=== PATIENT | female | born 1970 | race Caucasian/White ===

== ENCOUNTER 2018-06-26 12:46 | Emergency (ER) | payer SELFPAY ==
[~2018-06-26] VITALS: Ht 167.6 cm; Wt 58.5 kg
[~2018-06-26 12:46] MED LIST: HYDR-971 PO; LEVO500T8 PO; ONDA4TAB7 PO
[2018-06-26 12:55] VITALS: BP 132/80
--- NOTE | 2018-06-26 14:04 | RAD ---
Left shoulder 3 views. HISTORY: Left shoulder pain, hurts to move 3 views were taken of the left shoulder. There is not evidence of an acute fracture or osseous abnormality. IMPRESSION: 1. Negative left shoulder. Electronically signed by: Georges Britt MD (06/26/2018 2:00 PM) [facility]
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
[2018-06-26] MEDS ORDERED: IBUPROFEN 400 MG TABLET. PO ONE ×2 (14:23→15:00)
== END 2018-06-26 14:30 | disposition home or self-care (01) ==
LOC: ER 12:46
DX: M25.512 Pain in left shoulder (principal); F17.200 Nicotine dependence, unspecified, uncomplicated; Z98.890 Other specified postprocedural states; Z98.51 Tubal ligation status
CPT/HCPCS: 73030; 99284

== ENCOUNTER → 2019-10-17 | Outpatient (CLI) | payer OTHER ==
[~2019-10-17] MED LIST changes: +HYDR-3164 PO; -HYDR-971 PO
--- NOTE | 2019-10-17 17:37 | RAD ---
Pelvic ultrasound HISTORY: Abnormal vaginal bleeding. Transabdominal scan: Limited visualization of uterus and adnexa. Endovaginal scan: Uterus measures 9.8 x 5.3 x 6.3 cm. Endometrial stripe is somewhat heterogeneous and thickened, measuring about 28 mm thickness. There is a small lesion at the left uterine fundus measuring 1 cm, most likely a uterine fibroid. Small nabothian cysts. Right ovary measures 3.1 x 1.7 x 3.0 cm. Intact blood supply to the right ovary. 16 x 10 x 15 mm complex cystic appearing lesion of the right ovary with some peripheral vascularity, but no internal vascularity. Left ovary measures 2.4 x 2.4 x 1.5 cm. Intact blood supply to the left ovary without focal left ovarian lesion. No free fluid is seen. IMPRESSION: 1. Thick and heterogeneous uterine endometrium. This may be due to endometrial hemorrhage, but an endometrial mass or endometritis could result in a similar appearance. 2. Right ovarian lesion has the appearance of a complex or hemorrhagic cyst. 3. Small lesion at the left uterine fundus, most likely a fibroid. Electronically signed by: Sharif Jamil MD (10/17/2019 5:34 PM) [facility]
== END | disposition home or self-care (01) ==
LOC: US 14:08
DX: N83.8 Other noninflammatory disorders of ovary, fallopian tube and broad ligament (principal); N85.8 Other specified noninflammatory disorders of uterus
CPT/HCPCS: 76830; 76856

== ENCOUNTER → 2019-10-25 | Outpatient (CLI) | payer OTHER ==
[~2019-10-25] MED LIST changes: +GADOTERATE 7.5 MMOL/15ML VIAL. IVP ONE
--- NOTE | 2019-10-25 16:42 | RAD ---
MRI Brain with and without contrast History: Prolactinemia Technique: Multiplanar, multi sequential pre and postcontrast MR imaging was performed of the brain. Comparison: None Findings: There is no evidence of recent infarct or cytotoxic edema. The ventricles, sulci, and cisterns are within normal limits in size and configuration. There is no significant midline shift, intraaxial mass effect, or focal abnormal extra-axial fluid collection. There is no significant signal abnormality of the brain parenchyma. There is no nodular parenchymal or leptomeningeal enhancement. There is preservation of the major intracranial flow-voids at the skull base. The cerebellar tonsils are normal in location. There is no significant abnormality of the pineal gland. There is patchy very minimal ethmoid air cell and left maxillary sinus mucosal thickening. There is mild patchy fluid and thickening of the mastoid air cells bilaterally.There is preserved marrow signal of the clivus. Dedicated imaging of the pituitary gland was not performed. Pituitary gland is not significantly enlarged. Infundibulum is in the midline. Pituitary gland enhances fairly homogeneously on the large field of view images. Impression: 1. Dedicated pituitary imaging was not performed, pituitary gland not significantly enlarged. Electronically signed by: José Miguel Campbell MD (10/25/2019 4:39 PM) [id number]
== END | disposition home or self-care (01) ==
LOC: MRI 15:08
PROVIDERS: ATTEND Obstetrics & Gynecology
DX: E22.1 Hyperprolactinemia (principal); J34.89 Other specified disorders of nose and nasal sinuses
CPT/HCPCS: 70553; A9575

== ENCOUNTER 2020-02-15 10:56 | Emergency (ER) | payer OTHER ==
[~2020-02-15] VITALS: Ht 167.6 cm; Wt 63.6 kg
[~2020-02-15 10:56] MED LIST changes: -GADOTERATE 7.5 MMOL/15ML VIAL. IVP ONE
[2020-02-15] MEDS ORDERED: IV NORMAL SALINE 1000ML BAG 1,000 ML IV ONE (11:08)
--- NOTE | 2020-02-15 11:13 | PHYS DOC ---
Past Medical History Past Medical History: No Pertinent History, UTI Past Surgical History: , Tubal ligation Additional Past Surgical Histo: MESH PLACED DUE TO HERNIA REPAIR, Smoking Status: Current Every Day Smoker Alcohol Use: Occasionally Drug Use: None General Pediatric Assessment Chief Complaint Chief Complaint: ABDOMINAL PAIN History of Present Illness History of Present Illness 49-year-old female presented emergency department today with right-sided pain in her abdomen. She describes it as a sharp shooting pain that is nonradiating. It was more in her right upper abdomen last night and now is more in her right lower abdomen. The pain is moderate. It comes and goes. Is worse when she moves and when she lays on her right side. She denies vomiting or diarrhea. She denies changes in vaginal discharge. Review of systems negative for chest pain shortness of breath vomiting fevers chills. All other review of system. ED course: 49-year-old female presented emergency department today with right- sided abdominal pain. On arrival she is mildly tachycardic with mild hypertension. Otherwise she is well-appearing and nontoxic. Blood work shows minimally elevated nonspecific white blood cell count of 12.1. Chemistry panel unremarkable. Urine analysis negative for infection. CT the abdomen pelvis shows no evidence of acute appendicitis. Ultrasound of the pelvis shows heterogenous lesion likely related to the patient's 2 prior C-sections. On reexamination the patient's abdomen continues to be soft and nontender. We will discharge the patient today to follow-up with her PCP tomorrow or to return to an emergency department or urgent care for repeat examination. The patient has been examined and was not found to have an emergency medical condition. The patient was then discharged home in stable condition to follow up with their primary care physician over the next 1-2 days. They were to return if their sy mptoms worsened or if they were concerned for any reason. They were also instructed to return to the emergency department if they were unable to get the recommended and appropriate follow-up. [id number] discharge instructions and return precautions were given. Patient's questions were answered to their satisfaction. Patient is comfortable with plan. PPE Statement: During the patient's care I used an level 3 mask, gloves, and face sheild. Allergies Allergies Allergies Coded Allergies Type Severity Reaction Last Updated Verified No Known Allergies Allergy Unknown 02/18/16 Yes Physical Exam Physical Exam Constitutional: Well developed, well nourished, no acute distress, non-toxic appearance, positive interaction, playful. [] HENT: Normocephalic, atraumatic, bilateral external ears normal, oropharynx moist, no oral exudates, nose normal. [] Eyes: PERRLA, conjunctiva normal, no discharge. [] Neck: Normal range of motion, no tenderness, supple, no stridor. [] Cardiovascular: Normal heart rate, normal rhythm, no murmurs, no rubs, no gallops. [] Thorax and Lungs: Normal breath sounds, no respiratory distress, no wheezing, no chest tenderness, no retractions, no accessory muscle use. [] Abdomen: Bowel sounds normal, soft, no tenderness, no masses [] Skin: Warm, dry, no erythema, no rash. [] Back: No tenderness, no CVA tenderness. [] Extremities: Intact distal pulses, no tenderness, no cyanosis, ROM intact, no edema, no deformities. [] Neurologic: Alert and interactive, normal motor function, normal sensory function, no focal deficits noted. [] Radiology/Procedures Radiology/Procedures [] Course & Med Decision Making Course & Med Decision Making Pertinent Labs and Imaging studies reviewed. (See chart for details) [] Dragon Disclaimer Dragon Disclaimer This electronic medical record was generated, in whole or in part, using a voice recognition dictation system. Departure Departure Impression: Primary Impression: Abdominal pain Disposition: 01 HOME, SELF-CARE Condition: STABLE Referrals: NO PCP (PCP) Patient Instructions: Abdominal Pain Additional Instructions: All other ROS is negative unless otherwise noted. HUY SERRANO MD Feb 15, 2020 11:13
[2020-02-15] MEDS ORDERED: ONDANSETRON PF 4 MG/2 ML VIAL. IV ONE (11:15)
[2020-02-15] MEDS ORDERED: HYDROmorphone 2 MG/ML VIAL IM ONE (11:15)
[2020-02-15 11:17] LABS: BILIRUBIN,URINE NEGATIVE (NEG); CLARITY,URINE CLEAR; COLOR,URINE YELLOW; NITRITE,URINE NEGATIVE (NEG); PROTEIN,URINE NEGATIVE (NEG-TRACE); UROBILINOGEN,URINE 0.2 mg/dL (0.2 mg/dL)
[2020-02-15 11:21] LABS: SQUAMOUS EPITHELIAL CELL,UR MOD /LPF
[2020-02-15 11:22] LABS: BACTERIA,URINE 0 /HPF (0-FEW); RBC,URINE OCC /HPF (0-2)
[2020-02-15] MEDS ORDERED: HYDROmorphone 2 MG/ML VIAL IV ONE (11:30)
[2020-02-15 11:44] LABS: BASO # 0.1 x10^3/uL (0.0-0.2); BASO % 1 % (0-3); EOS # 0.3 x10^3/uL (0.0-0.7); EOS % 2 % (0-3); HEMATOCRIT 36.9 % (36.0-47.0); HEMOGLOBIN 12.3 g/dL (12.0-15.5); LYMPH # 1.4 x10^3/uL (1.0-4.8); LYMPH % 12 % (24-48); MEAN CORPUSCULAR HEMOGLOBIN 30 pg (25-35); MEAN CORPUSCULAR HGB CONC 33 g/dL (31-37); MEAN CORPUSCULAR VOLUME 91 fL (79-100); MONO # 1.1 x10^3/uL (0.0-1.1); MONO % 9 % (0-9); NEUT # 9.3 x10^3/uL (1.8-7.7); NEUT % 76 % (31-73); PLATELET COUNT 262 x10^3/uL (140-400); RED BLOOD COUNT 4.07 x10^6/uL (3.50-5.40); WHITE BLOOD COUNT 12.1 x10^3/uL (4.0-11.0)
[2020-02-15 11:51] LABS: CALCIUM 8.3 mg/dL (8.5-10.1); CREATININE 0.9 mg/dL (0.6-1.0); GFR 67.1; POTASSIUM 3.9 mmol/L (3.5-5.1)
[2020-02-15 11:59] LABS: ALBUMIN 3.4 g/dL (3.4-5.0); TOTAL BILIRUBIN 0.4 mg/dL (0.2-1.0); TOTAL PROTEIN 6.7 g/dL (6.4-8.2)
[2020-02-15] MEDS ORDERED: CONTRAST GIVEN. MC PRN (12:00)
[2020-02-15] MEDS ORDERED: IOHEXOL 300 MG/ML 100ML VIAL. IV ONE (12:00)
--- NOTE | 2020-02-15 12:29 | RAD ---
PELVIS W/TV History: Reason: PELVIC PAIN / Spl. Instructions: / History: Comparison: CT February 15, 2020. Ultrasound October 17, 2019. Technique: Grayscale and color Doppler imaging of the pelvis was performed using transabdominal and transvaginal technique. Findings: The uterus measures 10.6 x 6.0 x 5.4 cm. Heterogeneous lesion within the inferior anterior aspect of the uterus measures 0.8 x 0.8 x 0.8 cm. Previously seen lesion within the uterine fundus is not well identified on the current examination. Nabothian cysts noted. The endometrial stripe measures 13 mm. Right ovary measures 2 x 2.5 x 1.5 cm. Right ovarian follicle measures 1.2 cm. Left ovary measures 3.8 x 2.2 x 2.2 cm. Normal Doppler flow to the ovaries. No adnexal masses are seen. Minimal pelvic free fluid, likely physiologic. IMPRESSION: 1. Heterogeneous lesion within the inferior anterior aspect of the uterus, may relate to fibroid or possible postoperative changes. Recommend correlation for prior section. 2. Dominant right ovarian follicle. Electronically signed by: Ortega Pearce DO (02/15/2020 12:27 PM) [id number]
--- NOTE | 2020-02-15 12:34 | RAD ---
CT abdomen and pelvis with contrast History: Right abdominal pain Technique: After the administration of intravenous contrast, CT imaging was performed of the abdomen and pelvis. No oral contrast was given as per request. Multiplanar images are reviewed. Exposure: One or more of the following individualized dose reduction techniques were utilized for this examination: 1. Automated exposure control 2. Adjustment of the mA and/or kV according to patient size 3. Use of iterative reconstruction technique. Comparison: February 20, 2016 Findings: There is mild linear atelectasis of the visualized lung bases bilaterally. There is no significant abnormality of the liver, spleen, pancreas, adrenal glands. Both kidneys enhance. There is very mild increased right renal pelviectasis. Tiny hypodense lesion of the superior right kidney about 0.3 cm is too small to accurately characterize. There is again approximate 6.3 cm superior left renal cyst. There is also again 2.1 cm hypodense lesion of the medial left kidney, density measurements greater than simple fluid 26 Hounsfield units although size is similar dating back to 2016 exam. Gallbladder is present without obvious intraluminal abnormality by CT. There is again 1.2 cm splenic artery aneurysm. Accurate evaluation of bowel is limited without oral contrast. Normal caliber appendix is visualized without adjacent inflammatory-type change. There is retained stool greater of the right colon. There is been previous ventral hernia repair. There is mild diverticulosis greatest of the sigmoid colon. There are again 2 adjacent hypodense foci of the left adnexa with the largest about 2.1 cm, density measurements somewhat greater than simple cysts at 228 Hounsfield units. Impression: 1. There is no CT evidence of acute appendicitis, no significant inflammatory type change identified. No urolithiasis or significant hydronephrosis is identified. 2. There is again large superior left renal cyst, smaller focus of the medial left kidney which has density measurements greater than a simple cyst although more likely a complex cyst, size similar to 2016 exam. 3. There are some hypodense foci of the left adnexa which may be somewhat complex cysts. 4. There is mild colonic diverticulosis. 5. There is again 1.2 cm splenic artery aneurysm. Electronically signed by: José Miguel Campbell MD (02/15/2020 12:31 PM) [id number]
[2020-02-15 13:08] VITALS: BP 114/62
== END 2020-02-15 13:11 | disposition home or self-care (01) ==
LOC: ER 10:56
DX: R10.11 Right upper quadrant pain (principal); F17.200 Nicotine dependence, unspecified, uncomplicated; Z98.890 Other specified postprocedural states; Z98.51 Tubal ligation status
CPT/HCPCS: 36415; 74177; 76830; 76856; 80053; 81001; 83690; 85025; 96374; 96375; 99285; J1170; J2405; J7030; Q9967

== ENCOUNTER 2020-12-14 10:17 | Inpatient (IN) | payer OTHER ==
[~2020-12-14] VITALS: Ht 167.6 cm; Wt 65.0 kg
--- NOTE | 2020-12-14 10:28 | PHYS DOC ---
Past Medical History Past Medical History: UTI (MILIND QUINONEZ ORDER PACKER) Past Surgical History: , Tubal ligation Additional Past Surgical Histo: MESH PLACED DUE TO HERNIA REPAIR (MILIND QUINONEZ ORDER PACKER) Smoking Status: Current Every Day Smoker Alcohol Use: Occasionally Drug Use: None (MILIND QUINONEZ APRN) General Adult EDM: Chief Complaint: PELVIC PAIN HPI: HPI: Patient is a 50 year old female who presents with 1 day of low mid abdominal pressure, urination frequency and nausea. Patient denies fever, burning with urination, constipation, diarrhea, vomiting, headache, dizziness, chest pain, shortness of breath, back pain, syncope. Patient states she does not have any abdominal pain is just pressure and discomfort of which she rates a 10 out of 10. She states she is very nauseated. She states she has had a urinary tract infection that caused her to be septic in the past. She states she has been having vaginal bleeding for the last 6 weeks and has been seen by a microbiological lab technician of which her next appointment is in 5 days on 19 December. She denies going through more than one pad an hour. She is not on any kind of control. P odilon has a history of , smoker, mesh placed for hernia repair and UTI. (MILIND QUINONEZ ORDER PACKER) Review of Systems: Review of Systems: Constitutional: Denies fever or chills. [] Eyes: Denies change in visual acuity. [] HENT: Denies nasal congestion or sore throat. [] Respiratory: Denies cough or shortness of breath. [] Cardiovascular: Denies chest pain or edema. [] GI: + Lower abdominal pain, +nausea, denies vomiting, bloody stools or diarrhea. [] : Denies dysuria. [] Musculoskeletal: Denies back pain or joint pain. [] Integument: Denies rash. [] Neurologic: Denies headache, focal weakness or sensory changes. [] Endocrine: Denies polyuria or polydipsia. [] Lymphatic: Denies swollen glands. [] Psychiatric: Denies depression or anxiety. [] (MILIND QUINONEZ ORDER PACKER) Heart Score: C/O Chest Pain: No Risk Factors: Risk Factors: DM, Current or recent (<one month) smoker, HTN, HLP, family history of CAD, obesity. Risk Scores: Score 0 - 3: 2.5% MACE over next 6 weeks - Discharge Home Score 4 - 6: 20.3% MACE over next 6 weeks - Admit for Clinical Observation Score 7 - 10: 72.7% MACE over next 6 weeks - Early Invasive Strategies (MILIND QUINONEZ APRN) Allergies: Allergies: Allergies Coded Allergies Type Severity Reaction Last Updated Verified No Known Allergies Allergy Unknown 02/18/16 Yes (MILIND QUINONEZ APRN) Physical Exam: PE: Constitutional: Well developed, well nourished, no acute distress, non-toxic appearance. [] HENT: Normocephalic, atraumatic, bilateral external ears normal, oropharynx moist, no oral exudates, nose normal. [] Eyes: PERRLA, EOMI, conjunctiva normal, no discharge. [] Neck: Normal range of motion, no tenderness, supple, no stridor. [] Cardiovascular:Heart rate regular rhythm, no murmur [] Lungs & Thorax: Bilateral breath sounds clear to auscultation [] Abdomen: Bowel sounds normal, soft, no tenderness, no masses, no pulsatile masses. [] Skin: Warm, dry, no erythema, no rash. [] Back: No tenderness, no CVA tenderness. [] Extremities: No tenderness, no cyanosis, no clubbing, ROM intact, no edema. [] Neurologic: Alert and oriented X 3, normal motor function, normal sensory function, no focal deficits noted. [] Psychologic: Affect normal, judgement normal, mood normal. Normal physical exam [] (MILIND QUINONEZ APRN) EKG: EK and read by Dr De La Paz as Sinus Rhythm and no STEMI (MILIND QUINONEZ APRN) Radiology/Procedures: Radiology/Procedures: [] Impression: [facility] [address] [place], [place] [id number] IMAGING REPORT Signed PATIENT: KATHLEEN ABREU ACCOUNT: [id number] : 1970 LOCATION: ER AGE: 50 SEX: F EXAM STATUS: REG ER ORD. PHYSICIAN: MILIND QUINONEZ APRN REASON: shortness of breath PROCEDURE: PORTABLE CHEST 1V EXAM: Chest, single view. HISTORY: Shortness of breath. COMPARISON: None. FINDINGS: A frontal view of the chest is obtained. There is no infiltrate, pleural effusion or pneumothorax. The heart is normal in size. IMPRESSION: No acute pulmonary finding. Electronically signed by: Ange Mfcarlane MD (12/14/2020 11:07 AM) [id number] DICTATED and SIGNED BY: ANGE MCFARLANE MD DATE: 12/14/20 [id number] [facility] [address] [place] [address] IMAGING REPORT Signed PATIENT: KATHLEEN ABREU ACCOUNT: [id number] : 1970 LOCATION: ER AGE: 50 SEX: F EXAM STATUS: REG ER ORD. PHYSICIAN: MILIND QUINONEZ APRN REASON: hypoxia, OMNI 350 INJ 90 MLS PROCEDURE: CT ANGIO CHEST W ABD PEL W/ PQRS Compliance Statement: One or more of the following individualized dose reduction techniques were utilized for this examination: 1. Automated exposure control 2. Adjustment of the mA and/or kV according to patient size 3. Use of iterative reconstruction technique CTA CHEST_ABDOMEN_AND PELVIS Clinical Indication: Reason: hypoxia, abdominal tenderness, nausea. Comparison: CT abdomen and pelvis with contrast February 15, 2020. Technique: Helical CT of the chest was performed after the administration of 90 cc of Omnipaque 350 intravenous contrast according to PE protocol. Axial and coronal reconstructions were obtained. 3-D MIP images were constructed to better evaluate the pulmonary arteries. Helical CT imaging continued in the abdomen or pelvis. Findings: Pulmonary arteries are adequately opacified. There is no evidence of pulmonary embolism. There is no thoracic aortic dissection. The great vessels are normal caliber. There is a 1.9 cm left thyroid nodule or cyst, incompletely imaged. There is no adenopathy in the chest. Cardiac size is normal, no pericardial effusion. The central airways are patent. There is interlobular septal thickening in the bilateral lungs. There are posterior lower lobe consolidations bilaterally. The liver, gallbladder, spleen, pancreas, adrenal glands, and abdominal aorta caliber are normal. Bilateral renal cysts are stable or smaller and do not require follow-up. There is no hydronephrosis. There is ventral hernia mesh. Redemonstrated splenic artery aneurysm. The stomach is decompressed. There is no small bowel obstruction. Air distends the rectum. There is moderate sigmoid colon diverticulosis. Moderate colon stool volume. The appendix is normal. No colon wall thickening is seen. No abdominal adenopathy or free fluid. Urinary bladder is normal. Uterus unremarkable. No pelvic free fluid. Grade one retrolisthesis of L5 on S1. IMPRESSION: 1. There is no pulmonary embolus. 2. Interlobular septal thickening suggests interstitial edema. 3. Moderate bilateral posterior lower lobe consolidations may be atelectasis or pneumonia. 4. Left thyroid nodule. Recommend outpatient thyroid ultrasound. 5. No acute abdominal or pelvic abnormality. 6. Moderate sigmoid colon diverticulosis. Electronically signed by: Mitul Crowell MD (12/14/2020 12:23 PM) [id number] DICTATED and SIGNED BY: MITUL CROWELL MD DATE: 12/14/20 [id number] (MILIND QUINONEZ APRN) Course & Med Decision Making: Course & Med Decision Making Pertinent Labs and Imaging studies reviewed. (See chart for details) COVID-19 CRITERIA: The patient was evaluated during the global COVID-19 pandemic, and that diagnosis was suspected/considered upon their initial presentation. Their evaluation, treatment and testing was consistent with current guidelines for patients who present with complaints or symptoms that may be related to COVID-19. See HPI. Alert and oriented x4. Ambulatory with a steady gait. Speaks in full clear sentences. Skin pink warm and dry. Abdomen is soft and nontender. No CVA tenderness. Lungs are clear to auscultation all lobes. Patient states intermittently she does feel short of breath. Her O2 saturation in the ED is 94% on room air. She denies fevers but states occasionally she has some chills. Patient positive for amphetamines and opiates in her urine. Blood cell 17.6. Urine looks contaminated. Lactic acid is normal. EKG is normal. Patient got up and walked to the restroom she stayed at 89% on room air. Patient is given azithromycin and Rocephin. She is given a liter of normal saline. CT chest abdomen pelvis shows :IMPRESSION: 1. There is no pulmonary embolus. 2. Interlobular septal thickening suggests interstitial edema. 3. Moderate bilateral posterior lower lobe consolidations may be atelectasis or pneumonia. 4. Left thyroid nodule. Recommend outpatient thyroid ultrasound. 5. No acute abdominal or pelvic abnormality. 6. Moderate sigmoid colon diverticulosis. [] (MILIND QUINONEZ APRN) Dragon Disclaimer: Dragon Disclaimer: This electronic medical record was generated, in whole or in part, using a voice recognition dictation system. (MILIND QUINONEZ APRN) COVID-19 Patient Risks: Age 65 or older: No Sign of co-morbidity: Yes Exp to person + for COVID: No Exp to PUI: No Travel from affected area: No Lower respiratory symptoms: Yes Fever: No Other: No (MILIND QUINONEZ APRN) PPE Use: Full PPE with N95 mask or PAPR: Yes (MILIND QUINONEZ APRN) Departure Departure Impression: Primary Impression: Pneumonia Qualified Codes: J18.9 - Pneumonia, unspecified organism Additional Impressions: Person under investigation for COVID-19 Amphetamine abuse UTI (urinary tract infection) Qualified Codes: N39.0 - Urinary tract infection, site not specified; R31.9 - Hematuria, unspecified Disposition: 09 ADMITTED INPATIENT Admitting Physician: PRETTY (MILIND QUINONEZ APRN) Condition: STABLE Referrals: NO PCP (PCP) Attending Signature Attending Signature I have participated in the care of this patient and I have reviewed and agree with all pertinent clinical information above including history, exam, and recommendations. (SHELBY DE LA PAZ MD) MILIND QUINONEZ APRN Dec 14, 2020 10:28 SHELBY DE LA PAZ MD Dec 16, 2020 06:42
[2020-12-14] MEDS ORDERED: ONDANSETRON PF 4 MG/2 ML VIAL. IVP ONE (10:30)
[2020-12-14] MEDS ORDERED: IV NORMAL SALINE 1000ML BAG 1,000 ML IV SCH (10:30)
[2020-12-14 10:41] LABS: BASO # 0.2 x10^3/uL (0.0-0.2); BASO % 1 % (0-3); EOS # 0.3 x10^3/uL (0.0-0.7); EOS % 2 % (0-3); HEMATOCRIT 33.5 % (36.0-47.0); HEMOGLOBIN 11.1 g/dL (12.0-15.5); LYMPH # 0.6 x10^3/uL (1.0-4.8); LYMPH % 3 % (24-48); MEAN CORPUSCULAR HEMOGLOBIN 30 pg (25-35); MEAN CORPUSCULAR HGB CONC 33 g/dL (31-37); MEAN CORPUSCULAR VOLUME 90 fL (79-100); MONO # 0.3 x10^3/uL (0.0-1.1); MONO % 2 % (0-9); NEUT # 16.2 x10^3/uL (1.8-7.7); NEUT % 92 % (31-73); PLATELET COUNT 212 x10^3/uL (140-400); RED BLOOD COUNT 3.73 x10^6/uL (3.50-5.40); RED CELL DISTRIBUTION WIDTH 13.8 % (11.5-14.5); WHITE BLOOD COUNT 17.6 x10^3/uL (4.0-11.0)
[2020-12-14 10:42] LABS: BILIRUBIN,URINE NEGATIVE (NEG); CLARITY,URINE CLEAR; NITRITE,URINE NEGATIVE (NEG); PROTEIN,URINE NEGATIVE (NEG-TRACE)
[2020-12-14 10:47] LABS: COLOR,URINE YELLOW
[2020-12-14 10:48] LABS: BACTERIA,URINE MANY /HPF (0-FEW); BARBITURATES NEG (NEG); BENZODIAZEPINES NEG (NEG); CANNABINOIDS NEG (NEG); COCAINE NEG (NEG); METHADONE NEG (NEG); OPIATES POS (NEG); PHENCYCLIDINE NEG (NEG); RBC,URINE >40 /HPF (0-2)
[2020-12-14 10:50] LABS: AMPHETAMINE/METHAMPHETAMINE POS (NEG)
[2020-12-14 10:52] LABS: CALCIUM 8.1 mg/dL (8.5-10.1); CREATININE 0.8 mg/dL (0.6-1.0); GFR 76.6; POTASSIUM 3.7 mmol/L (3.5-5.1)
[2020-12-14 10:59] LABS: ALBUMIN 3.5 g/dL (3.4-5.0); ALBUMIN/GLOBULIN RATIO 1.3 (1.0-1.7); TOTAL BILIRUBIN 0.6 mg/dL (0.2-1.0); TOTAL PROTEIN 6.3 g/dL (6.4-8.2)
[2020-12-14] MEDS ORDERED: KETOROLAC 30 MG/ML VIAL. IVP ONE (11:00)
--- NOTE | 2020-12-14 11:09 | RAD ---
EXAM: Chest, single view. HISTORY: Shortness of breath. COMPARISON: None. FINDINGS: A frontal view of the chest is obtained. There is no infiltrate, pleural effusion or pneumo thorax. The heart is normal in size. IMPRESSION: No acute pulmonary finding. Electronically signed by: Ange Braden MD (12/14/2020 11:07 AM) [id number]
[2020-12-14] MEDS ORDERED: cefTRIAXone IV Push 1 GM VIAL. IVP ONE (11:30)
--- NOTE | 2020-12-14 11:35 | EKG ---
[facility] [address] [place] [address] Test Date: 2020-12-14 Test Time: 10:42:37 Pat Name: KATHLEEN ABREU Department: Room: Gender: F Supervisor Doping: : 1970 Requested By: MILIND QUINONEZ Order Number: [id number] Reading MD: Measurements Intervals [place] Rate: 75 P: 54 [place]: 148 QRS: 56 QRSD: 80 T: 47 QT: 370 QTc: 416 Interpretive Statements SINUS RHYTHM NO SPECIFIC ECG ABNORMALITIES RI6.01 No previous ECG available for comparison
[2020-12-14] MEDS ORDERED: CONTRAST GIVEN. MC PRN (11:45)
[2020-12-14] MEDS ORDERED: IOHEXOL 350 MG/ML 100 ML VIAL. IV ONE (12:00)
--- NOTE | 2020-12-14 12:26 | RAD ---
PQRS Compliance Statement: One or more of the following individualized dose reduction techniques were utilized for this examinat ion: 1. Automated exposure control 2. Adjustment of the mA and/or kV according to patient size 3. Use of iterative reconstruction technique CTA CHEST_ABDOMEN_AND PELVIS Clinical Indication: Reason: hypoxia, abdominal tenderness, nausea. Comparison: CT abdomen and pelvis with contrast February 15, 2020. Technique: Helical CT of the chest was performed after the administration of 90 cc of Omnipaque 350 intravenous contrast according to PE protocol. Axial and coronal reconstructions were obtained. 3-D MIP images were constructed to better evaluate the pulmonary arteries. Helical CT imaging continued in the abdomen or pelvis. Findings: Pulmonary arteries are adequately opacified. There is no evidence of pulmonary embolism. There is no thoracic aortic dissection. The great vessels are normal caliber. There is a 1.9 cm left thyroid nodule or cyst, incompletely imaged. There is no adenopathy in the chest. Cardiac size is nor mal, no pericardial effusion. The central airways are patent. There is interlobular septal thickening in the bilateral lungs. There are posterior lower lobe consolidations bilaterally. The liver, gallbladder, spleen, pancreas, adrenal glands, and abdominal aorta caliber are normal. Nick ateral renal cysts are stable or smaller and do not require follow-up. There is no hydronephrosis. Th ere is ventral hernia mesh. Redemonstrated splenic artery aneurysm. The stomach is decompressed. There is no small bowel obstruction. Air distends the rectum. There is m oderate sigmoid colon diverticulosis. Moderate colon stool volume. The appendix is normal. No colon w all thickening is seen. No abdominal adenopathy or free fluid. Urinary bladder is normal. Uterus unremarkable. No pelvic free fluid. Grade one retrolisthesis of L5 on S1. IMPRESSION: 1. There is no pulmonary embolus. 2. Interlobular septal thickening suggests interstitial edema. 3. Moderate bilateral posterior lower lobe consolidations may be atelectasis or pneumonia. 4. Left thyroid nodule. Recommend outpatient thyroid ultrasound. 5. No acute abdominal or pelvic abnormality. 6. Moderate sigmoid colon diverticulosis. Electronically signed by: Mitul Crowell MD (12/14/2020 12:23 PM) [id number]
[2020-12-14] MEDS ORDERED: methylPREDNISolone SOD SUCC PF 125 MG/2 ML VIAL. IV ONE (13:00)
[2020-12-14] MEDS ORDERED: AZITHRMYCN 500MG IVPB FOR OMNI 250 ML IV ONE (13:00)
[2020-12-14 13:32] LABS: % BANDS 8 % (0-9); % EOS 2 % (0-5); % LYMPHS 3 % (24-48); % MONOS 1 % (0-10); % SEGS 86 % (35-66)
[2020-12-14 13:33] LABS: PLT ESTIMATE ADEQUATE (ADEQUATE)
[2020-12-14] MEDS ORDERED: ONDANSETRON PF 4 MG/2 ML VIAL. IV PRN (13:45)
[2020-12-14] MEDS ORDERED: ACETAMINOPHEN 325 MG TABLET. PO PRN (13:45)
[2020-12-14 15:15] VITALS: BP 109/72
[2020-12-14] MEDS ORDERED: HYDROcodone/APAP 5/325MG 1 TAB TABLET PO PRN (15:45)
--- NOTE | 2020-12-14 19:15 | NUR ---
Dr Navarro made aware of consult per this RN
[2020-12-14 19:48] VITALS: BP 117/67
[2020-12-14 23:43] VITALS: BP 101/58
--- NOTE | 2020-12-15 00:13 | HP ---
ADMIT DATE: 12/14/2020 CHIEF COMPLAINT: Pelvic pain, abdominal pain. REASON FOR CONSULTATION: Shortness of breath. HISTORY OF PRESENT ILLNESS: The patient is a pleasant 50-year-old female who presented with the above chief complaints. Basically, she has been having a lot of abdominal pain and pelvic pain for the past day. She has also been having some heavy bleeding for the past 6 weeks. She has been seen by a graining operator and is actually scheduled to re-see them in 5 days. She has associated nausea. Rates her symptoms at 10/10. While in the ER, we did some lab and x-rays. She has a white count of 17.6. A CT of the chest is showing interlobar septal thickening suggestive of interstitial edema, moderate bilateral posterior lower lobe consolidation, which may represent pneumonia. I discussed the case with the ER physician. We are going to admit the patient, start IV antibiotics and rule it out for COVID-19. PAST MEDICAL HISTORY: Chronic pain, UTI, , tubal ligation, hernia repair with mesh, tobacco abuse. ALLERGIES: None. FAMILY HISTORY: Diabetes. SOCIAL HISTORY: She smokes. No drinking or drugs. MEDICATIONS: Reviewed. Please refer to the MRAD. REVIEW OF SYSTEMS: GENERAL: No history of weight change, weakness or fevers. SKIN: No bruising, hair changes or rashes. EYES: No blurred, double or loss of vision. NOSE AND THROAT: No history of nosebleeds, hoarseness or sore throat. HEART: No history of palpitations, chest pain or shortness of breath on exertion. LUNGS: She complains of slight shortness of breath. GASTROINTESTINAL: She complains of nausea and abdominal pain. GENITOURINARY: No history of frequency, urgency, hesitancy or nocturia. NEUROLOGIC: Denies history of numbness, tingling, tremor or weakness. PSYCHIATRIC: No history of panic, anxiety or depression. ENDOCRINE: No history of heat or cold intolerance, polyuria or polydipsia. EXTREMITIES: Denies muscle weakness, joint pain, pain on walking or stiffness. . PHYSICAL EXAMINATION: VITALS: Within normal limits and are stable. GENERAL: No apparent distress. Alert and oriented. HEENT: Normal cephalic atraumatic, external auditory canals are patent. EYES: Extraocular muscles are intact, pupils are equally round and reactive to light and accommodation. MUSCULOSKELETAL: Well developed, well nourished, good range of motion. ENDOCRINE: No thyromegaly was palpated. LYMPHATICS: No cervical chain or axillary nodes were noted. HEMATOPOIETIC: No bruising. NECK: Supple, no JVD, no thyromegaly was noted. LUNGS: She has decreased breath sounds. HEART: RRR, S1, S2 present. Peripheral pulses intact, no obvious murmurs were noted. ABDOMEN: She has decreased bowel sound and tender diffusely. EXTREMITIES: Without any cyanosis, clubbing, or edema. Pedal pulses intact, Homans sign is negative. NEUROLOGIC: Normal speech, normal tone. A and O x 3, moves all extremities, no obvious focal deficits. PSYCHIATRIC: Normal affect, normal mood. Stable. SKIN: No ulcerations or rashes, good skin turgor, no jaundice. VASCULAR: Good capillary refill, neurovascular bundle appears to be intact. IMAGING: Chest x-ray was normal, but CT of the chest did show pneumonia and interlobar septal thickening suggestive of interstitial edema. LABORATORY DATA: White count 17.6. Electrolytes are normal. Drug screen was positive for amphetamines and opiates. Urinalysis showed small amount of leukocyte esterase and 5-10 white cells. COVID-19 testing was negative. ASSESSMENT AND PLAN: Pneumonia, dysfunctional uterine bleeding, leukocytosis, anemia with a hemoglobin of 11.1 and possible drug abuse. The patient will be admitted, we will start IV antibiotics. Consult Pulmonary, consult KNIFE SETTER and consult GI regarding her CT findings which are showing moderate sigmoid diverticulosis. IV fluids, home medications. DVT prophylaxis. Full code. I will order some p.r.n. Lortab, p.r.n. Zofran. She received methylprednisolone and azithromycin in the ER and ceftriaxone in the ER. We have already swabbed her for COVID-19, it is negative. RAJANI DR: Ronen TID: [id number]
[2020-12-15 03:40] VITALS: BP 104/56
[2020-12-15 07:00] VITALS: BP 105/60
--- NOTE | 2020-12-15 10:17 | CONS ---
DATE OF CONSULTATION: 12/15/2020 REASON FOR CONSULTATION: I was asked to see this 50-year-old lady for pneumonia, abnormal CT of the chest. HISTORY OF PRESENT ILLNESS: She has a history of [id number] smoking, continues to smoke about six cigarettes per day. She denies drug abuse, but when I told her urine drug screen has been positive for amphetamine and opioids, she admitted that she took Adderall, which she got from her friend and hydrocodone, which she got from her father. She denies shortness of breath, cough or sputum production, fever or chills. She started to have pain in her suprapubic area and burning when urinate and frequency. She has a history of sepsis due to UTI. She presented to the emergency room. She had severe pain. She also has had abnormal uterine bleeding. She was told she would need a hysterectomy. PAST MEDICAL HISTORY: UTI. PAST SURGICAL HISTORY: , tubal ligation, hernia repair. ALLERGIES: No known drug allergies. FAMILY HISTORY: Diabetes mellitus. SOCIAL HISTORY: History of [id number] smoking, continues to smoke 6 cigarettes per day. ALLERGIES: No known drug allergies. MEDICATIONS: Currently, she is on hydrocodone, lorazepam. She was given Rocephin and azithromycin in the emergency room. REVIEW OF SYSTEMS: As mentioned as above. Other systems are otherwise negative. PHYSICAL EXAMINATION: GENERAL: She appears older than her age. VITAL SIGNS: Her O2 saturation on room air is 95%, respiratory rate is 18, heart rate 82, blood pressure 105/60, temperature 98.3. HEENT: Normocephalic, atraumatic. Pupils equal, round, reactive to light. Throat is clear. Nose is clear. NECK: There is no JVD, lymphadenopathy or thyromegaly. CARDIOVASCULAR: Regular rate and rhythm. PMI is not displaced. CHEST INSPECTION: Normal. LUNGS: Clear to auscultation. ABDOMEN: Soft. Bowel sounds are good. There is no mass. EXTREMITIES: There is no edema. LYMPHATICS: There is no lymphadenopathy. NEUROLOGIC: Alert and oriented. LABORATORY DATA: I reviewed the following lab data: CT angiogram of the chest did not show pulmonary embolism, showed interlobular septal thickening suggestive of interstitial edema, lower lobe atelectasis, colon diverticulosis. WBC 17.6, hemoglobin 11.1, platelets are 212. Rapid COVID test is negative. Sodium 141, potassium 3.7, chloride 107, CO2 27, BUN 9, creatinine 0.8. Troponin less than 0.017. BNP 344. Urine drug screen was positive for amphetamine and opioids. IMPRESSION: 1. Abnormal CT of the chest. I suspect it is atelectasis. She does not have any symptoms of pneumonia. 2. Tobacco habituation. 3. Urinary tract infection. 4. Positive urine drug screen. 5. Abnormal uterine bleeding. PLAN AND RECOMMENDATIONS: 1. Titrate FiO2 to keep O2 saturation 92%. 2. Start incentive spirometer to use multiple times an hour. 3. Antibiotic for UTI per primary doctor. 4. I had a long discussion with her regarding smoking cessation. I have advised her to stop smoking forever. 5. I have advised her to stop taking other people's Adderall and opioids. 6. The findings and recommendations were discussed with the patient. She understood and agreed to proceed with the plan. I have answered all of her questions. Thank you very much for allowing me to participate in care of this very nice lady. TERRI DR: Reymundo TID: [id number]
[2020-12-15 11:00] VITALS: BP 107/51
[2020-12-15] MEDS ORDERED: AZITHROMYCIN 500 MG in IV NORMAL SALINE 250ML 250 ML IV SCH (12:00)
[2020-12-15] MEDS ORDERED: cefTRIAXone IV Push 1 GM VIAL. IVP SCH (12:00)
[2020-12-15] MEDS: IV NORMAL SALINE 1000ML BAG 1,000 ML IV SCH (12:30)
[2020-12-15] MEDS: HYDROcodone/APAP 10/325 1 TAB TABLET PO PRN ×2 (12:38→17:27)
--- NOTE | 2020-12-15 12:38 | PDOC2 ---
CONSULT Date of Consult Date of Consult DATE: 12/15/20 TIME: 12:34 History of Present Illness Reason for Visit: 50y admitted for pneumonia. The pt presented to the ER yesterday with midline pain in her lower abd. They pt had recently been hospitalized for the sepsis 2/2 an UTI, so she was concerned that this could be occurring again. Her daughter call the ambulance for transportation. In the ER a CT was performed revealing the followin. There is no pulmonary embolus. 2. Interlobular septal thickening suggests interstitial edema. 3. Moderate bilateral posterior lower lobe consolidations may be atelectasis or pneumonia. 4. Left thyroid nodule. Recommend outpatient thyroid ultrasound. 5. No acute abdominal or pelvic abnormality. 6. Moderate sigmoid colon diverticulosis. The pt was noted to have a WBC of 17.6. The pt was admitted for tx of the pneumonia. The pt also reported that She has had a constant bleeding for the last 6wks. She states that the bleeding started 10/30/20 and has continued since. The pt typically has monthly cycles, but they have always been heavy. Prior to the pandemic, she was seeking to get an endometrial ablation. She initially saw Dr. Watts and Dr. Marshall. In the course of her w/u they discovered that she had an elevated Prolactin. They w/u the elevated Prolactin with head MRIs, u/ss, etc per the pt and did not discover a cause. 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 It does not seem that these dxs were w/u though. It sounds like the tx of her bleeding was not being address quick enough so she eventually sought a new foot tender and found Dr. Winter. Her first visit with him was last wk. She is scheduled for a EMB 12/18/20 and after this results she will be scheduled for a hysterectomy. Her bleeding at this point is light. The pt was asked if she had ever been told about a nodule on her thyroid. 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 It is unclear what this means. PMH: Denies PSH: C/S x 2, BTL, Hernia repair with mesh x 2 Meds: None All: NKDA OBHx: 1st TSVD (pt was 17yo), 2nd TSVD, 3rd TSVD, 4th TC/S for abruption ( demise), 5th TC/S [place]: LMP 10/30/20 (prior period nml) no h/o hormonal contraception 15yo / regular / heavy SH: 1/2 PPD, no EtOH FH: CA, aneurysm, HTN Social History ALCOHOL: social Drugs: None Current Problem List Problem List Problems Medical Problems: (1) Amphetamine abuse Status: Acute (2) Person under investigation for COVID-19 Status: Acute (3) Pneumonia Status: Acute (4) UTI (urinary tract infection) Status: Acute Current Medications Current Medications Current Medications Sodium Chloride 1,000 ml @ 1,000 mls/hr Q1H IV Last administered on 12/14/20at 10:37; Start 12/14/20 at 10:30; Stop 12/14/20 at 11:29; Status DC Ondansetron HCl (Zofran) 4 mg 1X ONCE IVP Last administered on 12/14/20at 10:37; Start 12/14/20 at 10:30; Stop 12/14/20 at 10:31; Status DC Ketorolac Tromethamine (Toradol 30mg Vial) 30 mg 1X ONCE IVP Last administered on 12/14/20at 11:03; Start 12/14/20 at 11:00; Stop 12/14/20 at 11:01; Status DC Ceftriaxone Sodium (Rocephin) 1 gm 1X ONCE IVP Last administered on 12/14/20at 12:03; Start 12/14/20 at 11:30; Stop 12/14/20 at 11:31; Status DC Iohexol (Omnipaque 350 Mg/ml) 90 ml 1X ONCE IV Last administered on 12/14/20at 11:54; Start 12/14/20 at 12:00; Stop 12/14/20 at 12:01; Status DC Info (CONTRAST GIVEN -- Rx MONITORING) 1 each PRN DAILY PRN MC SEE COMMENTS; Start 12/14/20 at 11:45; Stop 12/16/20 at 11:44 Azithromycin 250 ml @ 250 mls/hr 1X ONCE IV Last administered on 12/14/20at 13:18; Start 12/14/20 at 13:00; Stop 12/14/20 at 13:59; Status DC Methylprednisolone Sodium Succinate (SOLU-Medrol 125MG VIAL) 65 mg 1X ONCE IV Last administered on 12/14/20at 13:18; Start 12/14/20 at 13:00; Stop 12/14/20 at 13:01; Status DC Ondansetron HCl (Zofran) 4 mg PRN Q8HRS PRN IV NAUSEA/VOMITING Last administered on 12/14/20at 14:11; Start 12/14/20 at 13:45; Stop 12/15/20 at 13:44 Acetaminophen (Tylenol) 650 mg PRN Q4HRS PRN PO FEVER > 100.3'F; Start 12/14/20 at 13:45; Stop 12/15/20 at 13:44 Acetaminophen/ Hydrocodone Bitart (Lortab 5/325) 1 tab PRN Q4HRS PRN PO PAIN Last administered on 12/14/20at 15:48; Start 12/14/20 at 15:45; Stop 12/14/20 at 17:44; Status DC Lorazepam (Ativan Inj) 2 mg PRN Q4HRS PRN IVP ANXIETY / AGITATION; Start 12/14/20 at 17:45 Lorazepam (Ativan Inj) 1 mg PRN Q4HRS PRN IVP ANXIETY / AGITATION; Start 12/14/20 at 17:45 Acetaminophen/ Hydrocodone Bitart (Lortab 10/325) 1 tab PRN Q4HRS PRN PO MODERATE TO SEVERE PAIN; Start 12/14/20 at 17:45 Ceftriaxone Sodium (Rocephin) 1 gm Q24H IVP ; Start 12/15/20 at 12:00 Azithromycin 250 ml @ 250 mls/hr DAILY IV ; Start 12/16/20 at 09:00; Status Cancel Sodium Chloride 1,000 ml @ 75 mls/hr [id number] IV ; Start 12/15/20 at 11:45 Azithromycin 500 mg/Sodium Chloride 250 ml @ 250 mls/hr Q24H IV ; Start 12/15/20 at 12:00 Active Scripts Active Reported No Known Medications Prior To Admisstion (Info) Each 1 Each UNK Allergies Allergies: Coded Allergies: No Known Drug Allergies (Unverified , 12/14/20) Physical Exam Physical Exam GENERAL: No apparent distress. Alert and oriented. HEENT: Normal cephalic atraumatic, external auditory canals are patent. EYES: Extraocular muscles are intact, pupils are equally round and reactive to light and accommodation. MUSCULOSKELETAL: Well developed, well nourished, good range of motion. ENDOCRINE: No thyromegaly was palpated. LYMPHATICS: No cervical chain or axillary nodes were noted. HEMATOPOIETIC: No bruising. NECK: Supple, no JVD, no thyromegaly was noted. LUNGS: She has decreased breath sounds. HEART: RRR, S1, S2 present. Peripheral pulses intact, no obvious murmurs were noted. ABDOMEN: She has decreased bowel sound and tender diffusely. EXTREMITIES: Without any cyanosis, clubbing, or edema. Pedal pulses intact, Homans sign is negative. NEUROLOGIC: Normal speech, normal tone. A and O x 3, moves all extremities, no obvious focal deficits. PSYCHIATRIC: Normal affect, normal mood. Stable. SKIN: No ulcerations or rashes, good skin turgor, no jaundice. VASCULAR: Good capillary refill, neurovascular bundle appears to be intact. Vitals VITALS Vital Signs Date Time Temp Pulse Resp B/P (MAP) Pulse Ox O2 Delivery O2 Flow Rate FiO2 12/15/20 11:00 98.5 80 18 107/51 (69) 98 Room Air 98.5 Labs Labs Laboratory Tests Test 12/14/20 10:20 12/14/20 10:30 12/14/20 10:32 12/14/20 11:43 Urine Collection Type Unknown Urine Color Yellow Urine Clarity Clear Urine pH 7.0 (<5.0-8.0) Urine Specific [place] 1.020 (1.000-1.030) Urine Protein Negative mg/dL (NEG-TRACE) Urine Glucose (UA) Negative mg/dL (NEG) Urine Ketones (Stick) Trace mg/dL (NEG) Urine Blood Large (NEG) Urine Nitrite Negative (NEG) Urine Bilirubin Negative (NEG) Urine Urobilinogen Dipstick 1.0 mg/dL (0.2 mg/dL) Urine Leukocyte Esterase Small (NEG) Urine RBC >40 /HPF (0-2) Urine WBC 5-10 /HPF (0-4) Urine Squamous Epithelial Cells Many /LPF Urine Bacteria Many /HPF (0-FEW) Urine Mucus Marked /LPF Urine Opiates Screen Pos (NEG) Urine Methadone Screen Neg (NEG) Urine Barbiturates Neg (NEG) Urine Phencyclidine Screen Neg (NEG) Urine Amphetamine/Methamphetamine Pos (NEG) Urine Benzodiazepines Screen Neg (NEG) Urine Cocaine Screen Neg (NEG) Urine Cannabinoids Screen Neg (NEG) Urine Ethyl Alcohol Neg (NEG) White Blood Count 17.6 x10^3/uL (4.0-11.0) Red Blood Count 3.73 x10^6/uL (3.50-5.40) Hemoglobin 11.1 g/dL (12.0-15.5) Hematocrit 33.5 % (36.0-47.0) Mean Corpuscular Volume 90 fL (79-100) Mean Corpuscular Hemoglobin 30 pg (25-35) Mean Corpuscular Hemoglobin Concent 33 g/dL (31-37) Red Cell Distribution Width 13.8 % (11.5-14.5) Platelet Count 212 x10^3/uL (140-400) Neutrophils (%) (Auto) 92 % (31-73) Lymphocytes (%) (Auto) 3 % (24-48) Monocytes (%) (Auto) 2 % (0-9) Eosinophils (%) (Auto) 2 % (0-3) Basophils (%) (Auto) 1 % (0-3) Neutrophils # (Auto) 16.2 x10^3/uL (1.8-7.7) Lymphocytes # (Auto) 0.6 x10^3/uL (1.0-4.8) Monocytes # (Auto) 0.3 x10^3/uL (0.0-1.1) Eosinophils # (Auto) 0.3 x10^3/uL (0.0-0.7) Basophils # (Auto) 0.2 x10^3/uL (0.0-0.2) Segmented Neutrophils % 86 % (35-66) Band Neutrophils % 8 % (0-9) Lymphocytes % 3 % (24-48) Monocytes % 1 % (0-10) Eosinophils % 2 % (0-5) Platelet Estimate Adequate (ADEQUATE) D-Dimer (Karen) < 0.27 ug/mlFEU Sodium Level 141 mmol/L (136-145) Potassium Level 3.7 mmol/L (3.5-5.1) Chloride Level 107 mmol/L (98-107) Carbon Dioxide Level 27 mmol/L (21-32) Anion Gap 7 (6-14) Blood Urea Nitrogen 9 mg/dL (7-20) Creatinine 0.8 mg/dL (0.6-1.0) Estimated GFR (Cockcroft-Gault) 76.6 BUN/Creatinine Ratio 11 (6-20) Glucose Level 118 mg/dL (70-99) Lactic Acid Level 1.0 mmol/L (0.4-2.0) Calcium Level 8.1 mg/dL (8.5-10.1) Total Bilirubin 0.6 mg/dL (0.2-1.0) Aspartate Amino Transf (AST/SGOT) 11 U/L (15-37) Alanine Aminotransferase (ALT/SGPT) 11 U/L (14-59) Alkaline Phosphatase 42 U/L (46-116) Troponin I Quantitative < 0.017 ng/mL (0.000-0.055) NR-[id number]-M-Type Natriuretic Peptide 344 pg/mL (0-124) Total Protein 6.3 g/dL (6.4-8.2) Albumin 3.5 g/dL (3.4-5.0) Albumin/Globulin Ratio 1.3 (1.0-1.7) Lipase 69 U/L (73-393) Bedside Urine HCG, Qualitative Hcg negative (Negative) SARS-CoV-2 RNA (ANGIE) Negative (Negative) Assessment/Plan Assessment/Plan Assessment: 50y admitted for pneumonia Recommendations: 1.) Dysfunctional uterine bleeding Eval by multiple providers. Has a current tx plan with Dr. Winter. Current bleeding has slowed down. Per pt has an apt on 12/18 for EMB then to be scheduled for hysterectomy. No intervention required during this hospitalization 2.) Pneumonia on Azithro/ ceftriaxone, WBC 17.6, visualized on CT. 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
--- NOTE | 2020-12-15 13:11 | PDOC ---
Infectious Disease Note Vital Sign Vital Signs Vital Signs Date Time Temp Pulse Resp B/P (MAP) Pulse Ox O2 Delivery O2 Flow Rate FiO2 12/15/20 12:38 Room Air 12/15/20 11:00 98.5 80 18 107/51 (69) 98 98.5 Objective Assessment Leukocytosis Bilateral posterior lower lobe consolidations, likely atelectasis vs pneumonia Chronic lower abdominal pain STD exposure Substance abuse + Ur tox ampth/meth Dysfunctional uterine bleeding. followed by Dr. Winter w/ plans for biopsy and hysterectomy Sigmoid colon diverticulosis I Plan Plan of Care Rocephin, Azithromycin Screen HIV, CH/GC f/u cultures Monitor WBC trend and temp Pain management per primary Discussed with nursing and sister at bedside Thank you Labs in am. Concerned for STD. Has Endocrine appt 12/18 and scheduled for Hysterectomy Cont abx and f/u STDs - Syphillis also Attending Co-Sign Attending Co-Sign The patient was seen and interviewed as well as examined at the bedside. The chart was reviewed. The case was discussed. Agree with the plan of care. ADRYAN ARENAS APRN Dec 15, 2020 13:11 MELBA FREDERICK MD Dec 15, 2020 15:40
--- NOTE | 2020-12-15 13:53 | PDOC2 ---
CONSULT Date of Consult Date of Consult DATE: 12/15/20 TIME: 13:52 Reason for Consult Reason for Consult: Abd pain/dysfunctional uterine bleeding/constipation Social History ALCOHOL: social Drugs: None Current Problem List Problem List Problems Medical Problems: (1) Amphetamine abuse Status: Acute (2) Person under investigation for COVID-19 Status: Acute (3) Pneumonia Status: Acute (4) UTI (urinary tract infection) Status: Acute Current Medications Current Medications Current Medications Sodium Chloride 1,000 ml @ 1,000 mls/hr Q1H IV Last administered on 12/14/20at 10:37; Start 12/14/20 at 10:30; Stop 12/14/20 at 11:29; Status DC Ondansetron HCl (Zofran) 4 mg 1X ONCE IVP Last administered on 12/14/20at 10:37; Start 12/14/20 at 10:30; Stop 12/14/20 at 10:31; Status DC Ketorolac Tromethamine (Toradol 30mg Vial) 30 mg 1X ONCE IVP Last administered on 12/14/20at 11:03; Start 12/14/20 at 11:00; Stop 12/14/20 at 11:01; Status DC Ceftriaxone Sodium (Rocephin) 1 gm 1X ONCE IVP Last administered on 12/14/20at 12:03; Start 12/14/20 at 11:30; Stop 12/14/20 at 11:31; Status DC Iohexol (Omnipaque 350 Mg/ml) 90 ml 1X ONCE IV Last administered on 12/14/20at 11:54; Start 12/14/20 at 12:00; Stop 12/14/20 at 12:01; Status DC Info (CONTRAST GIVEN -- Rx MONITORING) 1 each PRN DAILY PRN MC SEE COMMENTS; Start 12/14/20 at 11:45; Stop 12/16/20 at 11:44 Azithromycin 250 ml @ 250 mls/hr 1X ONCE IV Last administered on 12/14/20at 13:18; Start 12/14/20 at 13:00; Stop 12/14/20 at 13:59; Status DC Methylprednisolone Sodium Succinate (SOLU-Medrol 125MG VIAL) 65 mg 1X ONCE IV Last administered on 12/14/20at 13:18; Start 12/14/20 at 13:00; Stop 12/14/20 at 13:01; Status DC Ondansetron HCl (Zofran) 4 mg PRN Q8HRS PRN IV NAUSEA/VOMITING Last administered on 12/14/20at 14:11; Start 12/14/20 at 13:45; Stop 12/15/20 at 13:44; Status DC Acetaminophen (Tylenol) 650 mg PRN Q4HRS PRN PO FEVER > 100.3'F; Start 12/14/20 at 13:45; Stop 12/15/20 at 13:44; Status DC Acetaminophen/ Hydrocodone Bitart (Lortab 5/325) 1 tab PRN Q4HRS PRN PO PAIN Last administered on 12/14/20at 15:48; Start 12/14/20 at 15:45; Stop 12/14/20 at 17:44; Status DC Lorazepam (Ativan Inj) 2 mg PRN Q4HRS PRN IVP ANXIETY / AGITATION; Start 12/14/20 at 17:45 Lorazepam (Ativan Inj) 1 mg PRN Q4HRS PRN IVP ANXIETY / AGITATION; Start 12/14/20 at 17:45 Acetaminophen/ Hydrocodone Bitart (Lortab 10/325) 1 tab PRN Q4HRS PRN PO MODERATE TO SEVERE PAIN Last administered on 12/15/20at 12:38; Start 12/14/20 at 17:45 Ceftriaxone Sodium (Rocephin) 1 gm Q24H IVP Last administered on 12/15/20at 12:29; Start 12/15/20 at 12:00 Azithromycin 250 ml @ 250 mls/hr DAILY IV ; Start 12/16/20 at 09:00; Status Cancel Sodium Chloride 1,000 ml @ 75 mls/hr [id number] IV Last administered on 12/15/20at 12:30; Start 12/15/20 at 11:45 Azithromycin 500 mg/Sodium Chloride 250 ml @ 250 mls/hr Q24H IV Last administered on 12/15/20at 12:30; Start 12/15/20 at 12:00 Active Scripts Active Reported No Known Medications Prior To Admisstion (Info) Each 1 Each UNK Allergies Allergies: Coded Allergies: No Known Drug Allergies (Unverified , 12/14/20) Vitals VITALS Vital Signs Date Time Temp Pulse Resp B/P (MAP) Pulse Ox O2 Delivery O2 Flow Rate FiO2 12/15/20 12:38 Room Air 12/15/20 11:00 98.5 80 18 107/51 (69) 98 98.5 Labs Labs Laboratory Tests Test 12/14/20 10:20 12/14/20 10:30 12/14/20 10:32 12/14/20 11:43 Urine Collection Type Unknown Urine Color Yellow Urine Clarity Clear Urine pH 7.0 (<5.0-8.0) Urine Specific [place] 1.020 (1.000-1.030) Urine Protein Negative mg/dL (NEG-TRACE) Urine Glucose (UA) Negative mg/dL (NEG) Urine Ketones (Stick) Trace mg/dL (NEG) Urine Blood Large (NEG) Urine Nitrite Negative (NEG) Urine Bilirubin Negative (NEG) Urine Urobilinogen Dipstick 1.0 mg/dL (0.2 mg/dL) Urine Leukocyte Esterase Small (NEG) Urine RBC >40 /HPF (0-2) Urine WBC 5-10 /HPF (0-4) Urine Squamous Epithelial Cells Many /LPF Urine Bacteria Many /HPF (0-FEW) Urine Mucus Marked /LPF Urine Opiates Screen Pos (NEG) Urine Methadone Screen Neg (NEG) Urine Barbiturates Neg (NEG) Urine Phencyclidine Screen Neg (NEG) Urine Amphetamine/Methamphetamine Pos (NEG) Urine Benzodiazepines Screen Neg (NEG) Urine Cocaine Screen Neg (NEG) Urine Cannabinoids Screen Neg (NEG) Urine Ethyl Alcohol Neg (NEG) White Blood Count 17.6 x10^3/uL (4.0-11.0) Red Blood Count 3.73 x10^6/uL (3.50-5.40) Hemoglobin 11.1 g/dL (12.0-15.5) Hematocrit 33.5 % (36.0-47.0) Mean Corpuscular Volume 90 fL (79-100) Mean Corpuscular Hemoglobin 30 pg (25-35) Mean Corpuscular Hemoglobin Concent 33 g/dL (31-37) Red Cell Distribution Width 13.8 % (11.5-14.5) Platelet Count 212 x10^3/uL (140-400) Neutrophils (%) (Auto) 92 % (31-73) Lymphocytes (%) (Auto) 3 % (24-48) Monocytes (%) (Auto) 2 % (0-9) Eosinophils (%) (Auto) 2 % (0-3) Basophils (%) (Auto) 1 % (0-3) Neutrophils # (Auto) 16.2 x10^3/uL (1.8-7.7) Lymphocytes # (Auto) 0.6 x10^3/uL (1.0-4.8) Monocytes # (Auto) 0.3 x10^3/uL (0.0-1.1) Eosinophils # (Auto) 0.3 x10^3/uL (0.0-0.7) Basophils # (Auto) 0.2 x10^3/uL (0.0-0.2) Segmented Neutrophils % 86 % (35-66) Band Neutrophils % 8 % (0-9) Lymphocytes % 3 % (24-48) Monocytes % 1 % (0-10) Eosinophils % 2 % (0-5) Platelet Estimate Adequate (ADEQUATE) D-Dimer (Karen) < 0.27 ug/mlFEU Sodium Level 141 mmol/L (136-145) Potassium Level 3.7 mmol/L (3.5-5.1) Chloride Level 107 mmol/L (98-107) Carbon Dioxide Level 27 mmol/L (21-32) Anion Gap 7 (6-14) Blood Urea Nitrogen 9 mg/dL (7-20) Creatinine 0.8 mg/dL (0.6-1.0) Estimated GFR (Cockcroft-Gault) 76.6 BUN/Creatinine Ratio 11 (6-20) Glucose Level 118 mg/dL (70-99) Lactic Acid Level 1.0 mmol/L (0.4-2.0) Calcium Level 8.1 mg/dL (8.5-10.1) Total Bilirubin 0.6 mg/dL (0.2-1.0) Aspartate Amino Transf (AST/SGOT) 11 U/L (15-37) Alanine Aminotransferase (ALT/SGPT) 11 U/L (14-59) Alkaline Phosphatase 42 U/L (46-116) Troponin I Quantitative < 0.017 ng/mL (0.000-0.055) PO-Xca-Y-Type Natriuretic Peptide 344 pg/mL (0-124) Total Protein 6.3 g/dL (6.4-8.2) Albumin 3.5 g/dL (3.4-5.0) Albumin/Globulin Ratio 1.3 (1.0-1.7) Lipase 69 U/L (73-393) Bedside Urine HCG, Qualitative Hcg negative (Negative) SARS-CoV-2 RNA (ANGIE) Negative (Negative) Assessment/Plan Assessment/Plan Constipation- most likely multifactorial in etiology with diverticulosis contributing. Increased miralax while an inpatient. O/P colonoscopy for CRC screening can be arranged later, Fullnote dictated RONALD CRANDALL MD Dec 15, 2020 13:53
--- NOTE | 2020-12-15 14:13 | PDOC ---
PROGRESS NOTES Date of Service: DATE: 12/15/20 TIME: 14:12 Chief Complaint Chief Complaint ASSESSMENT Pneumonia ? , COVID 19 NEG BUT AFEBRILE POSSIBLE UTI // Moderate bilateral posterior lower lobe consolidations may be atelectasis or pneumonia. LEUKOCYTOSIS dysfunctional uterine bleeding, leukocytosis, anemia with a hemoglobin of 11.1 possible drug abuse. POS MET ON UDS plan admitted, IV antibiotics. Consult Pulmonary, consult BLADE CHANGER consult GI regarding her CT findings which are showing moderate sigmoid diverticulosis. IV fluids, home medications. DVT prophylaxis. Full code. p.r.n. Lortab, p.r.n. Zofran. methylprednisolone iv azithromycin in the ER and ceftriaxone in the ER. Dysfunctional uterine bleeding Eval by multiple providers. FOLLOWS plan with Dr. Winter D/W RN 12-15 she took Adderall, which she got from her friend and hydrocodone, which she got from her father. History of Present Illness History of Present Illness ADMIT DATE: 12/14/2020 CHIEF COMPLAINT: Pelvic pain, abdominal pain. covid neg REASON FOR CONSULTATION: Shortness of breath. HISTORY OF PRESENT ILLNESS: pleasant 50-year-old female who presented with the above chief complaints. Basically, she has been having a lot of abdominal pain and pelvic pain for the past day. She has also been having some heavy bleeding for the past 6 weeks. She has been seen by a brownfield program coordinator and is actually scheduled to re-see them in 5 days. She has associated nausea. Rates her symptoms at 10/10. While in the ER, we did some lab and x-rays. She has a white count of 17.6. A CT of the chest is showing interlobar septal thickening suggestive of interstitial edema, moderate bilateral posterior lower lobe consolidation, which may represent pneumonia. admit the patient, start IV antibiotics and rule it out for COVID-19. PAST MEDICAL HISTORY: Chronic pain, UTI, , tubal ligation, hernia repair with mesh, tobacco abuse. ALLERGIES: None. FAMILY HISTORY: Diabetes. SOCIAL HISTORY: She smokes. No drinking or drugs. MEDICATIONS: Reviewed. Please refer to the MRAD. REVIEW OF SYSTEMS: GENERAL: No history of weight change, weakness or fevers. SKIN: No bruising, hair changes or rashes. EYES: No blurred, double or loss of vision. NOSE AND THROAT: No history of nosebleeds, hoarseness or sore throat. HEART: No history of palpitations, chest pain or shortness of breath on exertion. LUNGS: She complains of slight shortness of breath. GASTROINTESTINAL: She complains of nausea and abdominal pain. GENITOURINARY: No history of frequency, urgency, hesitancy or nocturia. NEUROLOGIC: Denies history of numbness, tingling, tremor or weakness. PSYCHIATRIC: No history of panic, anxiety or depression. ENDOCRINE: No history of heat or cold intolerance, polyuria or polydipsia. EXTREMITIES: Denies muscle weakness, joint pain, pain on walking or stiffness. Vitals Vitals Vital Signs Date Time Temp Pulse Resp B/P (MAP) Pulse Ox O2 Delivery O2 Flow Rate FiO2 12/15/20 12:38 Room Air 12/15/20 11:00 98.5 80 18 107/51 (69) 98 98.5 Physical Exam Physical Exam GENERAL: No apparent distress. Alert and oriented. HEENT: Normal cephalic atraumatic, external auditory canals are patent. EYES: Extraocular muscles are intact, pupils are equally round and reactive to light and accommodation. MUSCULOSKELETAL: Well developed, well nourished, good range of motion. ENDOCRINE: No thyromegaly was palpated. LYMPHATICS: No cervical chain or axillary nodes were noted. HEMATOPOIETIC: No bruising. NECK: Supple, no JVD, no thyromegaly was noted. LUNGS: She has decreased breath sounds. HEART: RRR, S1, S2 present. Peripheral pulses intact, no obvious murmurs were noted. ABDOMEN: She has decreased bowel sound and tender diffusely. EXTREMITIES: Without any cyanosis, clubbing, or edema. Pedal pulses intact, Homans sign is negative. NEUROLOGIC: Normal speech, normal tone. A and O x 3, moves all extremities, no obvious focal deficits. PSYCHIATRIC: Normal affect, normal mood. Stable. SKIN: No ulcerations or rashes, good skin turgor, no jaundice. VASCULAR: Good capillary refill, neurovascular bundle appears to be intact. Lungs: Clear Labs LABS PELVIS W/TV History: Reason: PELVIC PAIN / Spl. Instructions: / History: Comparison: CT February 15, 2020. Ultrasound October 17, 2019. Technique: Grayscale and color Doppler imaging of the pelvis was performed using transabdominal and transvaginal technique. Findings: The uterus measures 10.6 x 6.0 x 5.4 cm. Heterogeneous lesion within the inferior anterior aspect of the uterus measures 0.8 x 0.8 x 0.8 cm. Previously seen lesion within the uterine fundus is not well identified on the current examination. Nabothian cysts noted. The endometrial stripe measures 13 mm. Right ovary measures 2 x 2.5 x 1.5 cm. Right ovarian follicle measures 1.2 cm. Left ovary measures 3.8 x 2.2 x 2.2 cm. Normal Doppler flow to the ovaries. No adnexal masses are seen. Minimal pelvic free fluid, likely physiologic. IMPRESSION: 1. Heterogeneous lesion within the inferior anterior aspect of the uterus, may relate to fibroid or possible postoperative changes. Recommend correlation for prior section. 2. Dominant right ovarian follicle. Electronically signed by: Ortega Pearce DO (02/15/2020 12:27 PM) [id number] DICTATED and SIGNED BY: ORTEGA PEARCE DO DATE: 02/15/20 1227 EXAM: Chest, single view. HISTORY: Shortness of breath. COMPARISON: None. FINDINGS: A frontal view of the chest is obtained. There is no infiltrate, pleural effusion or pneumothorax. The heart is normal in size. IMPRESSION: No acute pulmonary finding. Electronically signed by: Ange Mcfarlane MD (12/14/2020 11:07 AM) [id number] DICTATED and SIGNED BY: ANGE MCFARLANE MD DATE: 12/14/20 [id number] PQRS Compliance Statement: One or more of the following individualized dose reduction techniques were utilized for this examination: 1. Automated exposure control 2. Adjustment of the mA and/or kV according to patient size 3. Use of iterative reconstruction technique CTA CHEST_ABDOMEN_AND PELVIS Clinical Indication: Reason: hypoxia, abdominal tenderness, nausea. Comparison: CT abdomen and pelvis with contrast February 15, 2020. Technique: Helical CT of the chest was performed after the administration of 90 cc of Omnipaque 350 intravenous contrast according to PE protocol. Axial and coronal reconstructions were obtained. 3-D MIP images were constructed to better evaluate the pulmonary arteries. Helical CT imaging continued in the abdomen or pelvis. Findings: Pulmonary arteries are adequately opacified. There is no evidence of pulmonary embolism. There is no thoracic aortic dissection. The great vessels are normal caliber. There is a 1.9 cm left thyroid nodule or cyst, incompletely imaged. There is no adenopathy in the chest. Cardiac size is normal, no pericardial effusion. The central airways are patent. There is interlobular septal thickening in the bilateral lungs. There are posterior lower lobe consolidations bilaterally. The liver, gallbladder, spleen, pancreas, adrenal glands, and abdominal aorta caliber are normal. Bilateral renal cysts are stable or smaller and do not require follow-up. There is no hydronephrosis. There is ventral hernia mesh. Redemonstrated splenic artery aneurysm. The stomach is decompressed. There is no small bowel obstruction. Air distends the rectum. There is moderate sigmoid colon diverticulosis. Moderate colon stool volume. The appendix is normal. No colon wall thickening is seen. No abdominal adenopathy or free fluid. Urinary bladder is normal. Uterus unremarkable. No pelvic free fluid. Grade one retrolisthesis of L5 on S1. IMPRESSION: 1. There is no pulmonary embolus. 2. Interlobular septal thickening suggests interstitial edema. 3. Moderate bilateral posterior lower lobe consolidations may be atelectasis or pneumonia. 4. Left thyroid nodule. Recommend outpatient thyroid ultrasound. 5. No acute abdominal or pelvic abnormality. 6. Moderate sigmoid colon diverticulosis. Electronically signed by: Mitul Crowell MD (12/14/2020 12:23 PM) [id number] DICTATED and SIGNED BY: MITUL CROWELL MD DATE: 12/14/20 [id number] Assessment and Plan Assessmemt and Plan Problems Medical Problems: (1) Amphetamine abuse Status: Acute (2) Person under investigation for COVID-19 Status: Acute (3) Pneumonia Status: Acute (4) UTI (urinary tract infection) Status: Acute Comment Review of Relevant I have reviewed the following items rosalind (where applicable) has been applied. Labs Laboratory Tests Test 12/14/20 10:20 12/14/20 10:30 12/14/20 10:32 12/14/20 11:43 Urine Collection Type Unknown Urine Color Yellow Urine Clarity Clear Urine pH 7.0 (<5.0-8.0) Urine Specific Prince 1.020 (1.000-1.030) Urine Protein Negative mg/dL (NEG-TRACE) Urine Glucose (UA) Negative mg/dL (NEG) Urine Ketones (Stick) Trace mg/dL (NEG) Urine Blood Large (NEG) Urine Nitrite Negative (NEG) Urine Bilirubin Negative (NEG) Urine Urobilinogen Dipstick 1.0 mg/dL (0.2 mg/dL) Urine Leukocyte Esterase Small (NEG) Urine RBC >40 /HPF (0-2) Urine WBC 5-10 /HPF (0-4) Urine Squamous Epithelial Cells Many /LPF Urine Bacteria Many /HPF (0-FEW) Urine Mucus Marked /LPF Urine Opiates Screen Pos (NEG) Urine Methadone Screen Neg (NEG) Urine Barbiturates Neg (NEG) Urine Phencyclidine Screen Neg (NEG) Urine Amphetamine/Methamphetamine Pos (NEG) Urine Benzodiazepines Screen Neg (NEG) Urine Cocaine Screen Neg (NEG) Urine Cannabinoids Screen Neg (NEG) Urine Ethyl Alcohol Neg (NEG) White Blood Count 17.6 x10^3/uL (4.0-11.0) Red Blood Count 3.73 x10^6/uL (3.50-5.40) Hemoglobin 11.1 g/dL (12.0-15.5) Hematocrit 33.5 % (36.0-47.0) Mean Corpuscular Volume 90 fL (79-100) Mean Corpuscular Hemoglobin 30 pg (25-35) Mean Corpuscular Hemoglobin Concent 33 g/dL (31-37) Red Cell Distribution Width 13.8 % (11.5-14.5) Platelet Count 212 x10^3/uL (140-400) Neutrophils (%) (Auto) 92 % (31-73) Lymphocytes (%) (Auto) 3 % (24-48) Monocytes (%) (Auto) 2 % (0-9) Eosinophils (%) (Auto) 2 % (0-3) Basophils (%) (Auto) 1 % (0-3) Neutrophils # (Auto) 16.2 x10^3/uL (1.8-7.7) Lymphocytes # (Auto) 0.6 x10^3/uL (1.0-4.8) Monocytes # (Auto) 0.3 x10^3/uL (0.0-1.1) Eosinophils # (Auto) 0.3 x10^3/uL (0.0-0.7) Basophils # (Auto) 0.2 x10^3/uL (0.0-0.2) Segmented Neutrophils % 86 % (35-66) Band Neutrophils % 8 % (0-9) Lymphocytes % 3 % (24-48) Monocytes % 1 % (0-10) Eosinophils % 2 % (0-5) Platelet Estimate Adequate (ADEQUATE) D-Dimer (Karen) < 0.27 ug/mlFEU Sodium Level 141 mmol/L (136-145) Potassium Level 3.7 mmol/L (3.5-5.1) Chloride Level 107 mmol/L (98-107) Carbon Dioxide Level 27 mmol/L (21-32) Anion Gap 7 (6-14) Blood Urea Nitrogen 9 mg/dL (7-20) Creatinine 0.8 mg/dL (0.6-1.0) Estimated GFR (Cockcroft-Gault) 76.6 BUN/Creatinine Ratio 11 (6-20) Glucose Level 118 mg/dL (70-99) Lactic Acid Level 1.0 mmol/L (0.4-2.0) Calcium Level 8.1 mg/dL (8.5-10.1) Total Bilirubin 0.6 mg/dL (0.2-1.0) Aspartate Amino Transf (AST/SGOT) 11 U/L (15-37) Alanine Aminotransferase (ALT/SGPT) 11 U/L (14-59) Alkaline Phosphatase 42 U/L (46-116) Troponin I Quantitative < 0.017 ng/mL (0.000-0.055) GQ-Lrz-[id number]-Type Natriuretic Peptide 344 pg/mL (0-124) Total Protein 6.3 g/dL (6.4-8.2) Albumin 3.5 g/dL (3.4-5.0) Albumin/Globulin Ratio 1.3 (1.0-1.7) Lipase 69 U/L (73-393) Bedside Urine HCG, Qualitative Hcg negative (Negative) SARS-CoV-2 RNA (ANGIE) Negative (Negative) Microbiology 12/14/20 Blood Culture - Preliminary, Resulted NO GROWTH AFTER 1 DAY Medications Current Medications Sodium Chloride 1,000 ml @ 1,000 mls/hr Q1H IV Last administered on 12/14/20at 10:37; Start 12/14/20 at 10:30; Stop 12/14/20 at 11:29; Status DC Ondansetron HCl (Zofran) 4 mg 1X ONCE IVP Last administered on 12/14/20at 10:37; Start 12/14/20 at 10:30; Stop 12/14/20 at 10:31; Status DC Ketorolac Tromethamine (Toradol 30mg Vial) 30 mg 1X ONCE IVP Last administered on 12/14/20at 11:03; Start 12/14/20 at 11:00; Stop 12/14/20 at 11:01; Status DC Ceftriaxone Sodium (Rocephin) 1 gm 1X ONCE IVP Last administered on 12/14/20at 12:03; Start 12/14/20 at 11:30; Stop 12/14/20 at 11:31; Status DC Iohexol (Omnipaque 350 Mg/ml) 90 ml 1X ONCE IV Last administered on 12/14/20at 11:54; Start 12/14/20 at 12:00; Stop 12/14/20 at 12:01; Status DC Info (CONTRAST GIVEN -- Rx MONITORING) 1 each PRN DAILY PRN MC SEE COMMENTS; Start 12/14/20 at 11:45; Stop 12/16/20 at 11:44 Azithromycin 250 ml @ 250 mls/hr 1X ONCE IV Last administered on 12/14/20at 13:18; Start 12/14/20 at 13:00; Stop 12/14/20 at 13:59; Status DC Methylprednisolone Sodium Succinate (SOLU-Medrol 125MG VIAL) 65 mg 1X ONCE IV Last administered on 12/14/20at 13:18; Start 12/14/20 at 13:00; Stop 12/14/20 at 13:01; Status DC Ondansetron HCl (Zofran) 4 mg PRN Q8HRS PRN IV NAUSEA/VOMITING Last administered on 12/14/20at 14:11; Start 12/14/20 at 13:45; Stop 12/15/20 at 13:44; Status DC Acetaminophen (Tylenol) 650 mg PRN Q4HRS PRN PO FEVER > 100.3'F; Start 12/14/20 at 13:45; Stop 12/15/20 at 13:44; Status DC Acetaminophen/ Hydrocodone Bitart (Lortab 5/325) 1 tab PRN Q4HRS PRN PO PAIN Last administered on 12/14/20at 15:48; Start 12/14/20 at 15:45; Stop 12/14/20 at 17:44; Status DC Lorazepam (Ativan Inj) 2 mg PRN Q4HRS PRN IVP ANXIETY / AGITATION; Start 12/14/20 at 17:45 Lorazepam (Ativan Inj) 1 mg PRN Q4HRS PRN IVP ANXIETY / AGITATION; Start 12/14/20 at 17:45 Acetaminophen/ Hydrocodone Bitart (Lortab 10/325) 1 tab PRN Q4HRS PRN PO MODERATE TO SEVERE PAIN Last administered on 12/15/20at 12:38; Start 12/14/20 at 17:45 Ceftriaxone Sodium (Rocephin) 1 gm Q24H IVP Last administered on 12/15/20at 12:29; Start 12/15/20 at 12:00 Azithromycin 250 ml @ 250 mls/hr DAILY IV ; Start 12/16/20 at 09:00; Status Cancel Sodium Chloride 1,000 ml @ 75 mls/hr [id number] IV Last administered on 12/15/20at 12:30; Start 12/15/20 at 11:45 Azithromycin 500 mg/Sodium Chloride 250 ml @ 250 mls/hr Q24H IV Last administered on 12/15/20at 12:30; Start 12/15/20 at 12:00 Active Scripts Active Reported No Known Medications Prior To Admisstion (Info) Each 1 Each UNK Vitals/I & O Vital Sign - Last 24 Hours 12/14/20 12/14/20 12/14/20 12/14/20 14:35 15:15 15:15 15:48 Temp 98.4 98.4 Pulse 100 101 Resp 16 18 B/P (MAP) 117/70 (86) 109/72 (84) Pulse Ox 93 94 O2 Delivery Room Air Room Air Room Air Room Air 12/14/20 12/14/20 12/15/20 12/15/20 19:48 23:43 03:40 07:00 Temp 98.6 98.6 98.4 98.3 98.6 98.6 98.4 98.3 Pulse 87 89 81 82 Resp 18 16 18 18 B/P (MAP) 117/67 (84) 101/58 (72) 104/56 (72) 105/60 (75) Pulse Ox 96 94 96 95 O2 Delivery Room Air Room Air Room Air 12/15/20 12/15/20 12/15/20 08:00 11:00 12:38 Temp 98.5 98.5 Pulse 80 Resp 18 B/P (MAP) 107/51 (69) Pulse Ox 98 O2 Delivery Room Air Room Air Room Air Intake and Output 12/14/20 12/14/20 12/15/20 14:59 22:59 06:59 Intake Total 1250 ml 300 ml Balance 1250 ml 300 ml Justicifation of Admission Dx: Justifications for Admission: Justification of Admission Dx: Yes Sepsis: Altered Mental Status SHANNON RUBIN MD Dec 15, 2020 14:13
[2020-12-15 15:00] VITALS: BP 103/51
--- NOTE | 2020-12-15 18:26 | CONS ---
DATE OF CONSULTATION: 12/15/2020 Marla Llanos, nurse practiotioner, dictating for Dr. Gagan Flores, Infectious Disease. REFERRING PHYSICIAN: Dr. Watson. REASON FOR CONSULTATION: Possible pneumonia and leukocytosis. HISTORY OF PRESENT ILLNESS: This patient is a 50-year-old female who presented with complaints of acute onset shortness of air. She tested negative for COVID. CT chest showed interlobular septal thickening and moderate bilateral posterior lower lobe consolidations may be atelectasis or pneumonia, no pulmonary embolus. She was admitted and started on Rocephin and azithromycin. Today, the patient is feeling better. She is not requiring any supplemental oxygen. She denies cough or chest discomfort. However, she is concerned that she may have a urinary tract infection or STD as her partner has had Trichomonas. She denies dysuria, fever or chills. HIV status unknown. She has chronic lower abdominal pain and heavy irregular menstrual cycles. She is followed by Dr. Winter with plans for endometrial biopsy and hysterectomy for dysfunctional uterine bleeding. She is also scheduled to see Endocrinology on 12/18. She is usually very active. However, lately she has been fatigued and sleeping quite a bit. PAST MEDICAL HISTORY: 1. Dysfunctional uterine bleeding. 2. Anemia. 3. Chronic pain. PAST SURGICAL HISTORY: section x 2, tubal ligation, hernia repair with mesh, tonsillectomy, adenoidectomy. SOCIAL HISTORY: The patient is a smoker. FAMILY HISTORY: Diabetes. ALLERGIES: No known drug allergies. MEDICATIONS: Ceftriaxone, azithromycin, lorazepam, Lortab, ondansetron, Tylenol. REVIEW OF SYSTEMS: Per HPI, otherwise all other review of systems are negative. PHYSICAL EXAMINATION: VITAL SIGNS: Temperature 98.5, blood pressure 107/51, heart rate 80, respiratory rate 18, pulse oximetry 98% on room air. GENERAL: The patient is propped up in bed, alert, appears tired. HEENT: Pupils equally round, reactive. Normal conjunctivae. Oropharynx pink and moist. No lesions seen. NECK: Supple. LUNGS: Clear to auscultation. No accessory muscle use. HEART: Normal S1 and S2 regular. ABDOMEN: Soft. Tender lower mid abdominal area. Bowel sounds present. No rebound. EXTREMITIES: No gross edema or cyanosis. SKIN: Warm to touch. No signs of rash. NEUROLOGIC: Alert and answering questions appropriately. LABORATORY DATA: On admission; WBC 17.6, hemoglobin 11.1, platelets 212,000. Electrolytes unremarkable. Creatinine 0.8, BUN 9, glucose 118. Lactic acid 1.0. Total bilirubin 0.6, AST 11, ALT 11. Troponin less than 0.017. BNP 344, albumin 3.5, lipase 69. Urinalysis positive for few wbc's, leukocyte esterase, blood and squamous epithelial cells. Urine test negative. COVID negative. Urine toxicology positive for opiates, amphetamine/methamphetamine. Blood cultures negative to date. Chest x-ray showed no acute pulmonary finding. Chest, abdomen and pelvis showed no pulmonary embolus. Interlobular septal thickening suggest interstitial edema. Moderate bilateral posterior lower lobe consolidations may be atelectasis or pneumonia. Left thyroid nodule. No acute abdominal or pelvic abnormality. Moderate sigmoid colon diverticulosis. IMPRESSION: 1. Leukocytosis. 2. Bilateral posterior lower lobe consolidation, likely atelectasis versus pneumonia. 3. Chronic lower abdominal pain. 4. STD exposure. 5. Substance abuse with positive urine toxicology for amphetamine/methamphetamine. 6. Dysfunctional uterine bleeding, followed by Dr. Winter with plans for biopsy and hysterectomy, also scheduled to see mathematics department chair on 12/18. 7. Sigmoid colon diverticulosis. 8. Left thyroid nodule. PLAN: 1. Continue ceftriaxone and azithromycin. 2. Screen for HIV chlamydia/gonorrhea and syphilis. 3. Follow up on culture results. 4. Monitor WBC trend and temperature. 5. Pain management per primary. 6. Discussed with nursing and the patient's sister at bedside. Thank you, Dr. Watson, for asking us to participate in this patient's care. Should you have further questions or concerns, please call. The patient is seen and examined and plan of care implemented by Dr. Gagan Flores. JONATHAN DR: Reanna TID: [phone]
[2020-12-15 19:00] VITALS: BP 103/53
[2020-12-15] MEDS ORDERED: POLYETHYLENE GLYCOL 3350 17 GM PACKET. PO PRN (21:45)
[2020-12-15] MEDS ORDERED: SENNOSIDES 8.6 MG TABLET PO PRN (21:45)
[2020-12-15 23:00] VITALS: BP 109/51
[2020-12-16 03:00] VITALS: BP 106/55
[2020-12-16 05:08] LABS: BASO % 0 % (0-3); EOS # 0.9 x10^3/uL (0.0-0.7); EOS % 9 % (0-3); HEMATOCRIT 28.8 % (36.0-47.0); HEMOGLOBIN 9.4 g/dL (12.0-15.5); LYMPH # 2.3 x10^3/uL (1.0-4.8); LYMPH % 24 % (24-48); MEAN CORPUSCULAR HEMOGLOBIN 30 pg (25-35); MEAN CORPUSCULAR HGB CONC 33 g/dL (31-37); MEAN CORPUSCULAR VOLUME 91 fL (79-100); MONO # 0.5 x10^3/uL (0.0-1.1); MONO % 6 % (0-9); NEUT # 5.8 x10^3/uL (1.8-7.7); NEUT % 61 % (31-73); PLATELET COUNT 181 x10^3/uL (140-400); RED BLOOD COUNT 3.17 x10^6/uL (3.50-5.40); WHITE BLOOD COUNT 9.5 x10^3/uL (4.0-11.0)
[2020-12-16] MEDS: IV NORMAL SALINE 1000ML BAG 1,000 ML IV SCH (05:11)
[2020-12-16 05:36] LABS: CALCIUM 7.6 mg/dL (8.5-10.1); CREATININE 0.7 mg/dL (0.6-1.0); GFR 89.3
[2020-12-16 06:02] LABS: POTASSIUM 3.7 mmol/L (3.5-5.1)
[2020-12-16 07:00] VITALS: BP 136/75
[2020-12-16] MEDS ORDERED: AZITHRMYCN 500MG IVPB FOR OMNI 250 ML IV SCH (09:00)
--- NOTE | 2020-12-16 09:58 | PDOC ---
RIDES SUPERVISOR PROGRESS NOTE Date of Service: DATE: 12/16/20 TIME: 09:58 Subjective: Pt feels better. Bleeding still light at this point Objective: Vital Signs: Vital Signs Date Time Temp Pulse Resp B/P (MAP) Pulse Ox O2 Delivery O2 Flow Rate FiO2 12/15/20 07:00 98.3 82 18 105/60 (75) 95 Room Air 98.3 Vital Signs Date Time Temp Pulse Resp B/P (MAP) Pulse Ox O2 Delivery O2 Flow Rate FiO2 12/16/20 07:00 98.0 69 17 136/75 (95) 95 Room Air 98.0 Labs: Laboratory Tests Test 12/16/20 03:55 White Blood Count 9.5 x10^3/uL (4.0-11.0) Red Blood Count 3.17 x10^6/uL (3.50-5.40) L Hemoglobin 9.4 g/dL (12.0-15.5) L Hematocrit 28.8 % (36.0-47.0) L Mean Corpuscular Volume 91 fL (79-100) Mean Corpuscular Hemoglobin 30 pg (25-35) Mean Corpuscular Hemoglobin Concent 33 g/dL (31-37) Red Cell Distribution Width 14.0 % (11.5-14.5) Platelet Count 181 x10^3/uL (140-400) Neutrophils (%) (Auto) 61 % (31-73) Lymphocytes (%) (Auto) 24 % (24-48) Monocytes (%) (Auto) 6 % (0-9) Eosinophils (%) (Auto) 9 % (0-3) H Basophils (%) (Auto) 0 % (0-3) Neutrophils # (Auto) 5.8 x10^3/uL (1.8-7.7) Lymphocytes # (Auto) 2.3 x10^3/uL (1.0-4.8) Monocytes # (Auto) 0.5 x10^3/uL (0.0-1.1) Eosinophils # (Auto) 0.9 x10^3/uL (0.0-0.7) H Basophils # (Auto) 0.0 x10^3/uL (0.0-0.2) Sodium Level 146 mmol/L (136-145) H Potassium Level 3.7 mmol/L (3.5-5.1) Chloride Level 112 mmol/L (98-107) H Carbon Dioxide Level 24 mmol/L (21-32) Anion Gap 10 (6-14) Blood Urea Nitrogen 13 mg/dL (7-20) Creatinine 0.7 mg/dL (0.6-1.0) Estimated GFR (Cockcroft-Gault) 89.3 Glucose Level 94 mg/dL (70-99) Calcium Level 7.6 mg/dL (8.5-10.1) L Treponema pallidum Antibody Nonreactive (Nonreactive) Hepatitis A IgM Antibody Nonreactive (Nonreactive) Hepatitis B Surface Antigen Nonreactive (Nonreactive) Hepatitis B Core IgM Antibody Nonreactive (Nonreactive) Hepatitis C IgG Antibody Nonreactive (Nonreactive) Laboratory Tests 12/16/20 03:55 Laboratory Tests 12/16/20 03:55 Laboratory Tests 12/16/20 03:55 Physical Exam: GENERAL: No apparent distress. Alert and oriented. HEENT: Head normocephalic, atraumatic. NECK: Supple LUNGS: Clear to auscultation. HEART: RRR, S1, S2 present, pulses intact ABDOMEN: Soft, positive bowel sounds. EXTREMITIES: No cyanosis or edema. NEUROLOGIC: Normal speech, normal tone PSYCHIATRIC: Normal affect, normal mood. SKIN: No ulceration. Assessment & Plan: A/P 50y admitted for pneumonia 1.) Dysfunctional uterine bleeding Eval by multiple providers. Has a current tx plan with Dr. Winter. Current bleeding has slowed down. Per pt has an apt on 12/18 for EMB then to be scheduled for hysterectomy. No intervention required during this hospitalization 2.) Pneumonia on Azithro/ ceftriaxone, WBC 17.6 -> 9.5 (no longer with left shift), Pulm consulted 3.) Anemia Hgb 11.1 -> 9.4 4.) Hematuria likely 2/2 to vaginal bleeding 5.) Left thyroid nodule can have outpt w/u 6.) Elevated prolactin w/u prior to this hospitalization per pt 7.) Aneurysm of spleen does not sound like this issue has ever been w/u 8.) Kidney nodule - does not sound like this issue has ever been w/u 9.) Sigmoid diverticulosis GI consulted 10.) Tob use 11.) UDS pos for meth 12.) C/S x 2 13.) Contraception BTL 14.) Covid neg 15.) Will cont to follow CARLOS SHIN MD Dec 16, 2020 09:58
--- NOTE | 2020-12-16 10:13 | PDOC ---
[facility] [facility] PROGRESS NOTE Date of Service DOS: DATE: 12/16/20 TIME: 10:09 Chief Complaint Chief Complaint A/P: Pneumonia - COVID 19 NEG. Moderate bilateral posterior lower lobe consolidations may be atelectasis or pneumonia. LEUKOCYTOSIS dysfunctional uterine bleeding - Eval by multiple providers. Has a current tx plan with Dr. Winter. Current bleeding has slowed down. Per pt has an apt on 12/18 for EMB then to be scheduled for hysterectomy. No intervention required during this hospitalization anemia with a hemoglobin of 11.1 possible drug abuse. POS MET ON UDS Pneumonia on Azithro/ ceftriaxone, WBC 17.6 -> 9.5 (no longer with left shift), Pulm consulted as well as ID Anemia Hgb 11.1 -> 9.4 ematuria likely 2/2 to vaginal bleeding Left thyroid nodule can have outpt w/u as planned Elevated prolactin w/u prior to this hospitalization per pt Aneurysm of spleen does not sound like this issue has ever been w/u Kidney nodule - does not sound like this issue has ever been w/u Sigmoid diverticulosis GI consulted Tobacco use - counseled on cessation UDS pos for meth. she took Adderall, which she got from her friend and hydrocodone, which she got from her father. C/S x 2 Abdominal pain - she notes it may be due to mesh. Has not had a BM since admission. wishes to have a BM at home plan Dysfunctional uterine bleeding Eval by multiple providers. FOLLOWS plan with Dr. Winter History of Present Illness History of Present Illness Ms Little is a pleasant 50-year-old female w/ PMHx chronic pain who presented with shortness of breath and abdominal pain and pelvic pain for 24 hours. She has also been having some heavy bleeding for the past 6 weeks. She has been seen by a fish farmer and is actually scheduled to re-see them in 5 days. She has associated nausea. Rates her symptoms at 10/10. While in the ER, we did some lab and x-rays. She has a white count of 17.6. A CT of the chest is showing interlobar septal thickening suggestive of interstitial edema, moderate bilateral posterior lower lobe consolidation, which may represent pneumonia. admitted the patient, started IV antibiotics and ruled out for COVID-19. NEGATIVE HIV, Syphilis, hepatitis, COVID 19 Consults: Cutting Machine Offbearer, Pulm, ID. Afebrile. Very little vaginal bleeding, has dysfunctional uterine bleeding, followed by Dr. Winter with plans for biopsy and hysterectomy, also scheduled to see pharmacy delivery driver on 12/18 for her thyroid nodule. Feeling much better, just some abdominal pain Vitals/I&O Vitals/I&O: Vital Signs Date Time Temp Pulse Resp B/P (MAP) Pulse Ox O2 Delivery O2 Flow Rate FiO2 12/16/20 08:00 Room Air 12/16/20 07:00 98.0 69 17 136/75 (95) 95 98.0 I & O 12/15/20 12/15/20 12/16/20 15:00 23:00 07:00 Intake Total 550 ml Balance 550 ml Physical Exam Physical Exam: GENERAL: No apparent distress. Alert and oriented. HEENT: Normal cephalic atraumatic, external auditory canals are patent. EYES: Extraocular muscles are intact, pupils are equally round and reactive to light and accommodation. MUSCULOSKELETAL: Well developed, well nourished, good range of motion. ENDOCRINE: No thyromegaly was palpated. LYMPHATICS: No cervical chain or axillary nodes were noted. HEMATOPOIETIC: No bruising. NECK: Supple, no JVD, no thyromegaly was noted. LUNGS: She has decreased breath sounds. HEART: RRR, S1, S2 present. Peripheral pulses intact, no obvious murmurs were noted. ABDOMEN: She has decreased bowel sound and tender diffusely. EXTREMITIES: Without any cyanosis, clubbing, or edema. Pedal pulses intact, Homans sign is negative. NEUROLOGIC: Normal speech, normal tone. A and O x 3, moves all extremities, no obvious focal deficits. PSYCHIATRIC: Normal affect, normal mood. Stable. SKIN: No ulcerations or rashes, good skin turgor, no jaundice. VASCULAR: Good capillary refill, neurovascular bundle appears to be intact. Lungs: Clear Labs Labs: Laboratory Tests Test 12/16/20 03:55 White Blood Count 9.5 x10^3/uL (4.0-11.0) Red Blood Count 3.17 x10^6/uL (3.50-5.40) Hemoglobin 9.4 g/dL (12.0-15.5) Hematocrit 28.8 % (36.0-47.0) Mean Corpuscular Volume 91 fL (79-100) Mean Corpuscular Hemoglobin 30 pg (25-35) Mean Corpuscular Hemoglobin Concent 33 g/dL (31-37) Red Cell Distribution Width 14.0 % (11.5-14.5) Platelet Count 181 x10^3/uL (140-400) Neutrophils (%) (Auto) 61 % (31-73) Lymphocytes (%) (Auto) 24 % (24-48) Monocytes (%) (Auto) 6 % (0-9) Eosinophils (%) (Auto) 9 % (0-3) Basophils (%) (Auto) 0 % (0-3) Neutrophils # (Auto) 5.8 x10^3/uL (1.8-7.7) Lymphocytes # (Auto) 2.3 x10^3/uL (1.0-4.8) Monocytes # (Auto) 0.5 x10^3/uL (0.0-1.1) Eosinophils # (Auto) 0.9 x10^3/uL (0.0-0.7) Basophils # (Auto) 0.0 x10^3/uL (0.0-0.2) Sodium Level 146 mmol/L (136-145) Potassium Level 3.7 mmol/L (3.5-5.1) Chloride Level 112 mmol/L (98-107) Carbon Dioxide Level 24 mmol/L (21-32) Anion Gap 10 (6-14) Blood Urea Nitrogen 13 mg/dL (7-20) Creatinine 0.7 mg/dL (0.6-1.0) Estimated GFR (Cockcroft-Gault) 89.3 Glucose Level 94 mg/dL (70-99) Calcium Level 7.6 mg/dL (8.5-10.1) Treponema pallidum Antibody Nonreactive (Nonreactive) Hepatitis A IgM Antibody Nonreactive (Nonreactive) Hepatitis B Surface Antigen Nonreactive (Nonreactive) Hepatitis B Core IgM Antibody Nonreactive (Nonreactive) Hepatitis C IgG Antibody Nonreactive (Nonreactive) Assessment and Plan Assessmemt and Plan Problems Medical Problems: (1) Amphetamine abuse Status: Acute (2) Person under investigation for COVID-19 Status: Acute (3) Pneumonia Status: Acute (4) UTI (urinary tract infection) Status: Acute Comment Review of Relevant I have reviewed the following items rosalind (where applicable) has been applied. Medications: Current Medications Medications (Trade) Dose Ordered Sig/Ileana Route PRN Reason Start Time Stop Time Status Last Admin Dose Admin Ceftriaxone Sodium (Rocephin) 1 gm Q24H IVP 12/15/20 12:00 12/15/20 12:29 Sodium Chloride 1,000 ml @ 75 mls/hr [id number] IV 12/15/20 11:45 12/16/20 05:11 Azithromycin 500 mg/Sodium Chloride 250 ml @ 250 mls/hr Q24H IV 12/15/20 12:00 12/15/20 12:30 Polyethylene Glycol (miraLAX PACKET) 17 gm PRN DAILY PRN PO CONSTIPATION 1ST CHOICE 12/15/20 21:45 12/16/20 05:08 Images: CTPA: 1. There is no pulmonary embolus. 2. Interlobular septal thickening suggests interstitial edema. 3. Moderate bilateral posterior lower lobe consolidations may be atelectasis or pneumonia. 4. Left thyroid nodule. Recommend outpatient thyroid ultrasound. 5. No acute abdominal or pelvic abnormality. 6. Moderate sigmoid colon diverticulosis. Justifications for Admission Other Justification LIGIA GREENE MD Dec 16, 2020 10:12
[2020-12-16] MEDS: HYDROcodone/APAP 10/325 1 TAB TABLET PO PRN (10:15)
--- NOTE | 2020-12-16 10:46 | PDOC ---
Date of Service: DATE: 12/16/20 TIME: 10:37 Subjective: Subjective: Just wants to go home. Definitely not going to eat any of the food here. Says she came for a UTI "because I get sepsis" and doesn't know why all these other doctors have to see her because it has nothing to do with any real problems she has like the fact she's had vaginal bleeding for 6 weeks. Long h/o irregular bowel habits - last stooled right before she came to the hospital. Says she "won't go again" until she gets home. Objective: Objective: D/w nurse. Vital Signs: Vital Signs Date Time Temp Pulse Resp B/P (MAP) Pulse Ox O2 Delivery O2 Flow Rate FiO2 12/16/20 08:00 Room Air 12/16/20 07:00 98.0 69 17 136/75 (95) 95 98.0 Labs: Laboratory Tests Test 12/16/20 03:55 White Blood Count 9.5 x10^3/uL Red Blood Count 3.17 x10^6/uL Hemoglobin 9.4 g/dL Hematocrit 28.8 % Mean Corpuscular Volume 91 fL Mean Corpuscular Hemoglobin 30 pg Mean Corpuscular Hemoglobin Concent 33 g/dL Red Cell Distribution Width 14.0 % Platelet Count 181 x10^3/uL Neutrophils (%) (Auto) 61 % Lymphocytes (%) (Auto) 24 % Monocytes (%) (Auto) 6 % Eosinophils (%) (Auto) 9 % Basophils (%) (Auto) 0 % Neutrophils # (Auto) 5.8 x10^3/uL Lymphocytes # (Auto) 2.3 x10^3/uL Monocytes # (Auto) 0.5 x10^3/uL Eosinophils # (Auto) 0.9 x10^3/uL Basophils # (Auto) 0.0 x10^3/uL Sodium Level 146 mmol/L Potassium Level 3.7 mmol/L Chloride Level 112 mmol/L Carbon Dioxide Level 24 mmol/L Anion Gap 10 Blood Urea Nitrogen 13 mg/dL Creatinine 0.7 mg/dL Estimated GFR (Cockcroft-Gault) 89.3 Glucose Level 94 mg/dL Calcium Level 7.6 mg/dL Treponema pallidum Antibody Nonreactive Hepatitis A IgM Antibody Nonreactive Hepatitis B Surface Antigen Nonreactive Hepatitis B Core IgM Antibody Nonreactive Hepatitis C IgG Antibody Nonreactive URINE CULTURE Final Final No Growth on 12/16/20 at 0821 BLOOD CULTURE Preliminary NO GROWTH AFTER 1 DAY PE: GEN: NAD, sitting up in bed LUNGS: diminished anteriorly HEART: RRR ABD: soft, non-distended NEURO/PSYCH: A & O 3, bit annoyed A/P: DUB, anemia H/o irregular bowel habits - ?recently w/ more constipation but stooled prior to admission Diverticulosis - noted on CT COVID negative +amphetamines -- This morning she's not interested in any further inpatient GI recommendations. Can follow-up for outpt colonoscopy - our office will call to arrange. Consider Miralax, etc. PRN for constipation. Consider checking anemia parameters. Justicifation of Admission Dx: Justifications for Admission: Justification of Admission Dx: Yes BELINDA CASTELAN Dec 16, 2020 10:46
[2020-12-16 11:00] VITALS: BP 124/55
[2020-12-16] MEDS ORDERED: ONDANSETRON ODT 4 MG TAB.RAPDIS. PO PRN (11:00)
--- NOTE | 2020-12-16 11:09 | PDOC ---
Infectious Disease Note Subjective: Subjective Patient without complaints Eager for discharge home today Vital Signs: Vital Signs Vital Signs Date Time Temp Pulse Resp B/P (MAP) Pulse Ox O2 Delivery O2 Flow Rate FiO2 12/16/20 11:00 98.3 81 17 124/55 (78) 99 Room Air 98.3 Physical Exam: PHYSICAL EXAM GENERAL: The patient is propped up in bed, alert, appears tired. HEENT: Pupils equally round, reactive. Normal conjunctivae. Oropharynx pink and moist. No lesions seen. NECK: Supple. LUNGS: Clear to auscultation. No accessory muscle use. HEART: Normal S1 and S2 regular. ABDOMEN: Soft. Tender lower mid abdominal area. Bowel sounds present. No rebound. EXTREMITIES: No gross edema or cyanosis. SKIN: Warm to touch. No signs of rash. NEUROLOGIC: Alert and answering questions appropriately. Medications: Inpatient Meds: Medications reviewed. Labs: Lab Laboratory Tests Test 12/16/20 03:55 White Blood Count 9.5 x10^3/uL (4.0-11.0) Red Blood Count 3.17 x10^6/uL (3.50-5.40) Hemoglobin 9.4 g/dL (12.0-15.5) Hematocrit 28.8 % (36.0-47.0) Mean Corpuscular Volume 91 fL (79-100) Mean Corpuscular Hemoglobin 30 pg (25-35) Mean Corpuscular Hemoglobin Concent 33 g/dL (31-37) Red Cell Distribution Width 14.0 % (11.5-14.5) Platelet Count 181 x10^3/uL (140-400) Neutrophils (%) (Auto) 61 % (31-73) Lymphocytes (%) (Auto) 24 % (24-48) Monocytes (%) (Auto) 6 % (0-9) Eosinophils (%) (Auto) 9 % (0-3) Basophils (%) (Auto) 0 % (0-3) Neutrophils # (Auto) 5.8 x10^3/uL (1.8-7.7) Lymphocytes # (Auto) 2.3 x10^3/uL (1.0-4.8) Monocytes # (Auto) 0.5 x10^3/uL (0.0-1.1) Eosinophils # (Auto) 0.9 x10^3/uL (0.0-0.7) Basophils # (Auto) 0.0 x10^3/uL (0.0-0.2) Sodium Level 146 mmol/L (136-145) Potassium Level 3.7 mmol/L (3.5-5.1) Chloride Level 112 mmol/L (98-107) Carbon Dioxide Level 24 mmol/L (21-32) Anion Gap 10 (6-14) Blood Urea Nitrogen 13 mg/dL (7-20) Creatinine 0.7 mg/dL (0.6-1.0) Estimated GFR (Cockcroft-Gault) 89.3 Glucose Level 94 mg/dL (70-99) Calcium Level 7.6 mg/dL (8.5-10.1) Treponema pallidum Antibody Nonreactive (Nonreactive) Hepatitis A IgM Antibody Nonreactive (Nonreactive) Hepatitis B Surface Antigen Nonreactive (Nonreactive) Hepatitis B Core IgM Antibody Nonreactive (Nonreactive) Hepatitis C IgG Antibody Nonreactive (Nonreactive) Objective: Assessment: 1. Leukocytosis. 2. Bilateral posterior lower lobe consolidation, likely atelectasis versus pneumonia. 3. Chronic lower abdominal pain. 4. STD exposure. 5. Substance abuse with positive urine toxicology for amphetamine/methamphetamine. HIV, hepatitis C, Treponema pallidum negative 6. Dysfunctional uterine bleeding, followed by Dr. Winter with plans for biopsy and hysterectomy, also scheduled to see elevator tender on 12/18. 7. Sigmoid colon diverticulosis. 8. Left thyroid nodule. Plan: Plan of Care Okay to discharge home on doxycycline Follow-up with PCP in 7 to 10 days Discussed with friend at bedside Discussed with NIRMALA Mccracken MD Dec 16, 2020 11:09
--- NOTE | 2020-12-16 11:09 | PDOC3 ---
Discharge Summary Visit Information Date of Admission: Dec 14, 2020 Date of Discharge: Dec 16, 2020 Admitting Diagnosis: Pneumonia Final Diagnosis Problems Medical Problems: (1) Amphetamine abuse Status: Acute (2) Person under investigation for COVID-19 Status: Acute (3) Pneumonia Status: Acute (4) UTI (urinary tract infection) Status: Acute Brief Hospital Course Allergies Allergies Coded Allergies Type Severity Reaction Last Updated Verified No Known Drug Allergies 12/14/20 No Vital Signs Vital Signs Date Time Temp Pulse Resp B/P (MAP) Pulse Ox O2 Delivery O2 Flow Rate FiO2 12/16/20 08:00 Room Air 12/16/20 07:00 98.0 69 17 136/75 (95) 95 98.0 Lab Results Laboratory Tests Test 12/14/20 11:43 12/16/20 03:55 SARS-CoV-2 RNA (ANGIE) Negative (Negative) White Blood Count 9.5 x10^3/uL (4.0-11.0) Red Blood Count 3.17 x10^6/uL (3.50-5.40) Hemoglobin 9.4 g/dL (12.0-15.5) Hematocrit 28.8 % (36.0-47.0) Mean Corpuscular Volume 91 fL (79-100) Mean Corpuscular Hemoglobin 30 pg (25-35) Mean Corpuscular Hemoglobin Concent 33 g/dL (31-37) Red Cell Distribution Width 14.0 % (11.5-14.5) Platelet Count 181 x10^3/uL (140-400) Neutrophils (%) (Auto) 61 % (31-73) Lymphocytes (%) (Auto) 24 % (24-48) Monocytes (%) (Auto) 6 % (0-9) Eosinophils (%) (Auto) 9 % (0-3) Basophils (%) (Auto) 0 % (0-3) Neutrophils # (Auto) 5.8 x10^3/uL (1.8-7.7) Lymphocytes # (Auto) 2.3 x10^3/uL (1.0-4.8) Monocytes # (Auto) 0.5 x10^3/uL (0.0-1.1) Eosinophils # (Auto) 0.9 x10^3/uL (0.0-0.7) Basophils # (Auto) 0.0 x10^3/uL (0.0-0.2) Sodium Level 146 mmol/L (136-145) Potassium Level 3.7 mmol/L (3.5-5.1) Chloride Level 112 mmol/L (98-107) Carbon Dioxide Level 24 mmol/L (21-32) Anion Gap 10 (6-14) Blood Urea Nitrogen 13 mg/dL (7-20) Creatinine 0.7 mg/dL (0.6-1.0) Estimated GFR (Cockcroft-Gault) 89.3 Glucose Level 94 mg/dL (70-99) Calcium Level 7.6 mg/dL (8.5-10.1) Treponema pallidum Antibody Nonreactive (Nonreactive) Hepatitis A IgM Antibody Nonreactive (Nonreactive) Hepatitis B Surface Antigen Nonreactive (Nonreactive) Hepatitis B Core IgM Antibody Nonreactive (Nonreactive) Hepatitis C IgG Antibody Nonreactive (Nonreactive) Laboratory Tests Test 12/16/20 03:55 White Blood Count 9.5 x10^3/uL (4.0-11.0) Red Blood Count 3.17 x10^6/uL (3.50-5.40) Hemoglobin 9.4 g/dL (12.0-15.5) Hematocrit 28.8 % (36.0-47.0) Mean Corpuscular Volume 91 fL (79-100) Mean Corpuscular Hemoglobin 30 pg (25-35) Mean Corpuscular Hemoglobin Concent 33 g/dL (31-37) Red Cell Distribution Width 14.0 % (11.5-14.5) Platelet Count 181 x10^3/uL (140-400) Neutrophils (%) (Auto) 61 % (31-73) Lymphocytes (%) (Auto) 24 % (24-48) Monocytes (%) (Auto) 6 % (0-9) Eosinophils (%) (Auto) 9 % (0-3) Basophils (%) (Auto) 0 % (0-3) Neutrophils # (Auto) 5.8 x10^3/uL (1.8-7.7) Lymphocytes # (Auto) 2.3 x10^3/uL (1.0-4.8) Monocytes # (Auto) 0.5 x10^3/uL (0.0-1.1) Eosinophils # (Auto) 0.9 x10^3/uL (0.0-0.7) Basophils # (Auto) 0.0 x10^3/uL (0.0-0.2) Sodium Level 146 mmol/L (136-145) Potassium Level 3.7 mmol/L (3.5-5.1) Chloride Level 112 mmol/L (98-107) Carbon Dioxide Level 24 mmol/L (21-32) Anion Gap 10 (6-14) Blood Urea Nitrogen 13 mg/dL (7-20) Creatinine 0.7 mg/dL (0.6-1.0) Estimated GFR (Cockcroft-Gault) 89.3 Glucose Level 94 mg/dL (70-99) Calcium Level 7.6 mg/dL (8.5-10.1) Treponema pallidum Antibody Nonreactive (Nonreactive) Hepatitis A IgM Antibody Nonreactive (Nonreactive) Hepatitis B Surface Antigen Nonreactive (Nonreactive) Hepatitis B Core IgM Antibody Nonreactive (Nonreactive) Hepatitis C IgG Antibody Nonreactive (Nonreactive) Brief Hospital Course Ms Little is a pleasant 50-year-old female w/ PMHx chronic pain who presented with shortness of breath and abdominal pain and pelvic pain for 24 hours. She has also been having some heavy bleeding for the past 6 weeks. She has been seen by a oliving machine operator and is actually scheduled to re-see them in 5 days. She has associated nausea. Rates her symptoms at 10/10. While in the ER, we did some lab and x-rays. She has a white count of 17.6. A CT of the chest is showing interlobar septal thickening suggestive of interstitial edema, moderate bilateral posterior lower lobe consolidation, which may represent pneumonia. admitted the patient, started IV antibiotics and ruled out for COVID-19. NEGATIVE HIV, Syphilis, hepatitis, COVID 19 Consults: Food Processing Plant Manager, Pulm, ID. Afebrile. Very little vaginal bleeding, has dysfunctional uterine bleeding, followed by Dr. Winter with plans for biopsy and hysterectomy, also scheduled to see adjunct communications faculty member on 12/18 for her thyroid nodule. Feeling much better, just some abdominal pain Problem list: Pneumonia - COVID 19 NEG. Moderate bilateral posterior lower lobe consolidations may be atelectasis or pneumonia. LEUKOCYTOSIS dysfunctional uterine bleeding - Eval by multiple providers. Has a current tx plan with Dr. Winter. Current bleeding has slowed down. Per pt has an apt on 12/18 for EMB then to be scheduled for hysterectomy. No intervention required during this hospitalization anemia with a hemoglobin of 11.1 possible drug abuse. POS MET ON UDS Pneumonia on Azithro/ ceftriaxone, WBC 17.6 -> 9.5 (no longer with left shift), Pulm consulted as well as ID Anemia Hgb 11.1 -> 9.4 ematuria likely 2/2 to vaginal bleeding Left thyroid nodule can have outpt w/u as planned Elevated prolactin w/u prior to this hospitalization per pt Aneurysm of spleen does not sound like this issue has ever been w/u Kidney nodule - does not sound like this issue has ever been w/u Sigmoid diverticulosis GI consulted Tobacco use - counseled on cessation UDS pos for meth. she took Adderall, which she got from her friend and hydrocodone, which she got from her father. C/S x 2 Abdominal pain - she notes it may be due to mesh. Has not had a BM since admission. wishes to have a BM at home plan Dysfunctional uterine bleeding Eval by multiple providers. FOLLOWS plan with Dr. Winter Greater than 30 minutes spent on d/c home with self care Discharge Information Condition at Discharge: Improved Follow Up: Weeks (1) Disposition/Orders: D/C to Home Scheduled Info (No Known Medications Prior To Admisstion) Each, 1 EACH UNK for UNKNOWN, (Reported) Entered as Reported by: ALEJANDRO PULIDO on 12/14/201627 Last Taken: Unknown Dose on Unknown Date & Time Last Action: New Order on 12/14/201627 by ALEJANDRO PULIDO Justicifation of Admission Dx: Justifications for Admission: Justification of Admission Dx: Yes LIGIA GREENE MD Dec 16, 2020 11:09
[2020-12-16] MEDS ORDERED: AMOX1TAB61 PO (11:11)
[2020-12-16] MEDS ORDERED: ONDA4TAB12 PO (11:11)
[2020-12-16] MEDS ORDERED: DOXY100C14 PO (11:27)
--- NOTE | 2020-12-16 11:34 | PDOC ---
PULMONARY PROGRESS NOTES DATE: 12/16/20 TIME: 11:32 Subjective Pt. feels much better no SOA or cough wanting to go home on room air Vitals Vital Signs Date Time Temp Pulse Resp B/P (MAP) Pulse Ox O2 Delivery O2 Flow Rate FiO2 12/16/20 11:00 98.3 81 17 124/55 (78) 99 Room Air 98.3 ROS: No Nausea, No Chest Pain, No Abdominal Pain, No Increase Cough General: Alert Lungs: Clear Cardiovascular: S1, S2 Abdomen: Soft, Non-tender Neuro Exam: Alert Extremities: No Edema Skin: Warm, Dry Labs Laboratory Tests Test 12/14/20 11:43 12/16/20 03:55 SARS-CoV-2 RNA (ANGIE) Negative (Negative) White Blood Count 9.5 x10^3/uL (4.0-11.0) Red Blood Count 3.17 x10^6/uL (3.50-5.40) Hemoglobin 9.4 g/dL (12.0-15.5) Hematocrit 28.8 % (36.0-47.0) Mean Corpuscular Volume 91 fL (79-100) Mean Corpuscular Hemoglobin 30 pg (25-35) Mean Corpuscular Hemoglobin Concent 33 g/dL (31-37) Red Cell Distribution Width 14.0 % (11.5-14.5) Platelet Count 181 x10^3/uL (140-400) Neutrophils (%) (Auto) 61 % (31-73) Lymphocytes (%) (Auto) 24 % (24-48) Monocytes (%) (Auto) 6 % (0-9) Eosinophils (%) (Auto) 9 % (0-3) Basophils (%) (Auto) 0 % (0-3) Neutrophils # (Auto) 5.8 x10^3/uL (1.8-7.7) Lymphocytes # (Auto) 2.3 x10^3/uL (1.0-4.8) Monocytes # (Auto) 0.5 x10^3/uL (0.0-1.1) Eosinophils # (Auto) 0.9 x10^3/uL (0.0-0.7) Basophils # (Auto) 0.0 x10^3/uL (0.0-0.2) Sodium Level 146 mmol/L (136-145) Potassium Level 3.7 mmol/L (3.5-5.1) Chloride Level 112 mmol/L (98-107) Carbon Dioxide Level 24 mmol/L (21-32) Anion Gap 10 (6-14) Blood Urea Nitrogen 13 mg/dL (7-20) Creatinine 0.7 mg/dL (0.6-1.0) Estimated GFR (Cockcroft-Gault) 89.3 Glucose Level 94 mg/dL (70-99) Calcium Level 7.6 mg/dL (8.5-10.1) Treponema pallidum Antibody Nonreactive (Nonreactive) Hepatitis A IgM Antibody Nonreactive (Nonreactive) Hepatitis B Surface Antigen Nonreactive (Nonreactive) Hepatitis B Core IgM Antibody Nonreactive (Nonreactive) Hepatitis C IgG Antibody Nonreactive (Nonreactive) Laboratory Tests Test 12/16/20 03:55 White Blood Count 9.5 x10^3/uL (4.0-11.0) Red Blood Count 3.17 x10^6/uL (3.50-5.40) Hemoglobin 9.4 g/dL (12.0-15.5) Hematocrit 28.8 % (36.0-47.0) Mean Corpuscular Volume 91 fL (79-100) Mean Corpuscular Hemoglobin 30 pg (25-35) Mean Corpuscular Hemoglobin Concent 33 g/dL (31-37) Red Cell Distribution Width 14.0 % (11.5-14.5) Platelet Count 181 x10^3/uL (140-400) Neutrophils (%) (Auto) 61 % (31-73) Lymphocytes (%) (Auto) 24 % (24-48) Monocytes (%) (Auto) 6 % (0-9) Eosinophils (%) (Auto) 9 % (0-3) Basophils (%) (Auto) 0 % (0-3) Neutrophils # (Auto) 5.8 x10^3/uL (1.8-7.7) Lymphocytes # (Auto) 2.3 x10^3/uL (1.0-4.8) Monocytes # (Auto) 0.5 x10^3/uL (0.0-1.1) Eosinophils # (Auto) 0.9 x10^3/uL (0.0-0.7) Basophils # (Auto) 0.0 x10^3/uL (0.0-0.2) Sodium Level 146 mmol/L (136-145) Potassium Level 3.7 mmol/L (3.5-5.1) Chloride Level 112 mmol/L (98-107) Carbon Dioxide Level 24 mmol/L (21-32) Anion Gap 10 (6-14) Blood Urea Nitrogen 13 mg/dL (7-20) Creatinine 0.7 mg/dL (0.6-1.0) Estimated GFR (Cockcroft-Gault) 89.3 Glucose Level 94 mg/dL (70-99) Calcium Level 7.6 mg/dL (8.5-10.1) Treponema pallidum Antibody Nonreactive (Nonreactive) Hepatitis A IgM Antibody Nonreactive (Nonreactive) Hepatitis B Surface Antigen Nonreactive (Nonreactive) Hepatitis B Core IgM Antibody Nonreactive (Nonreactive) Hepatitis C IgG Antibody Nonreactive (Nonreactive) Medications Active Scripts Medications Dose Route/Sig Max Daily Dose Days Date Category Doxycycline Monohydrate 100 Mg Capsule 1 Cap PO BID 7 12/16/20 Rx Ondansetron Odt (Ondansetron) 4 Mg Tab.rapdis 4 Mg PO PRN Q6HRS PRN 10 12/16/20 Rx No Known Medications Prior To Admisstion (Info) Each 1 Each UNK 12/14/20 Reported Impression . IMPRESSION: 1. Abnormal CT of the chest. 2. Tobacco habituation. 3. Urinary tract infection. 4. Positive urine drug screen. 5. Abnormal uterine bleeding. Plan . PLAN AND RECOMMENDATIONS: PT. is stable from respiratory standpoint, remains on room air IS at bedside ABX per ID Follow GI recs Continue to encourage smoking cessation. I have advised her to stop smoking forever. DVT/GI PPX D/W RN ok to Discharge home today from our standpoint MIGUEL DAWN MD Dec 16, 2020 11:34
[2020-12-16] MEDS ORDERED: HYDR25CA75 PO (12:07)
--- NOTE | 2020-12-16 12:13 | NUR ---
Pt was read discharge packet/instructions. Pt had no concerns or questions for this RN. IV was taken out, and heart monitor taken off. Informed pt to follow up in 2 weeks with PCP. Pt was stable when leaving unit.
--- NOTE | 2020-12-16 13:57 | NUR ---
SW following. Discussed with RN, pt from home, room air, regular diet. Discharge order for home with self care. No SW needs.
--- NOTE | 2020-12-16 15:06 | HP ---
ADMIT DATE: 12/15/2020 REASON FOR CONSULTATION: Constipation, abdominal pain. HISTORY OF PRESENT ILLNESS: A 50-year-old female with past medical history significant for UTI, , tubal ligation, history of mesh repair for hernia and tobaccoism who is admitted to [facility] with urinary frequency, nausea. She subsequently has been imaged which reveals diverticulosis and retained stool, possible pneumonia. Consultation with the other consultants have been obtained. The patient denies any bleeding. Denies any constipation, diarrhea as an outpatient. Denies any family history of colon cancer. Denies any bleeding. Denies any change in her weight and appetite, otherwise no additional complaints. PAST SURGICAL HISTORY: , tubal ligation, history of mesh repair or hernia, and UTI. ALLERGIES: None. MEDICATIONS: Presently include azithromycin, ceftriaxone, and lorazepam. SOCIAL HISTORY: Smoker, nondrinker. FAMILY HISTORY: Noncontributory. REVIEW OF SYSTEMS: Per records. PHYSICAL EXAMINATION: GENERAL: Reveals a well-nourished, well-developed female. VITAL SIGNS: Temperature 98.5, pulse is 80, respiratory rate 18, blood pressure is 107/51. LUNGS: Clear. HEART: Reveals S1, S2, without S3, S4 or appreciable murmur. ABDOMEN: Soft abdomen, normal bowel sounds are present. No hepatosplenomegaly. EXTREMITIES: No cyanosis, clubbing or edema. LABORATORY DATA: Hemoglobin 11.1, hematocrit 33.5, white count 17.6, platelet count is 212,000. Sodium 141, potassium 3.7, chloride 107, BUN is 9, creatinine 0.8, glucose is 118, calcium is 8.1, total bilirubin 0.6, AST of 11, ALT of 11, alkaline phosphatase of 42, total protein 6.3, albumin 3.5, lipase is 69. D-dimer 0.027. CT scan of abdomen and pelvis reveals thyroid nodule, sigmoid diverticulosis and mild aneurysm. ASSESSMENT AND PLAN: Abdominal pain, constipation, most likely secondary to dysfunctional uterine bleeding or possible urinary tract infection. We will recommend MiraLax for bowel function. Outpatient colonoscopy to further assess will be coordinated. GUERA DR: Christy TID: [id number]
== END 2020-12-16 12:00 | disposition home or self-care (01) | DRG 194 ==
LOC: ER 10:17 → 6 SOUTH 13:40
PROVIDERS: ADMIT Internal Medicine; ATTEND Internal Medicine
DX: J18.9 Pneumonia, unspecified organism (principal); N39.0 Urinary tract infection, site not specified; N93.8 Other specified abnormal uterine and vaginal bleeding; D64.9 Anemia, unspecified; E04.1 Nontoxic single thyroid nodule; K57.30 Diverticulosis of large intestine without perforation or abscess without bleeding; Z20.822 Contact with and (suspected) exposure to COVID-19; D25.9 Leiomyoma of uterus, unspecified; F15.10 Other stimulant abuse, uncomplicated; F17.210 Nicotine dependence, cigarettes, uncomplicated; I10 Essential (primary) hypertension; K59.00 Constipation, unspecified; K75.9 Inflammatory liver disease, unspecified; Z83.3 Family history of diabetes mellitus; Z90.710 Acquired absence of both cervix and uterus; Z71.6 Tobacco abuse counseling
CPT/HCPCS: 36415; 71045; 71275; 74177; 80048; 80053; 80307; 81001; 81025; 83605; 83690; 83880; 84484; 85007; 85025; 85379; 86592; 86703; 86705; 86709; 86803; 87040; 87086; 87340; 87491; 87591; 93005; 96361; 96365; 96375; 96376; 99285; G0238; J0456; J0696; J1885; J2060; J2405; J2930; J7030; J7050; Q9967; U0003; U0005; G0378

== ENCOUNTER → 2021-08-19 | Outpatient (CLI) | payer OTHER ==
[~2021-08-19] MED LIST changes: +AMOX1TAB61 PO; +DOXY-181 PO; +HYDR25CA75 PO; -LEVO500T8 PO; +LEVO500T9 PO; +ONDA4TAB12 PO
--- NOTE | 2021-08-19 13:19 | KCIC ---
EXAM: MRI right shoulder DATE: 08/19/2021 10:55 AM COMPARISON: None INDICATION: RIGHT SHOULDER PAIN / Spl. Instructions: LROM. / History: Right shoulder pain and burning after moving a heavy object one mth ago. TECHNIQUE: Multiplanar, multisequence MRI of the right shoulder was performed without contrast. FINDINGS: AC joint degenerative changes are seen. No os acromiale. Trace subacromial subdeltoid bursal edema, b ursitis. Small right shoulder joint effusion with synovitis. Increased signal and thickening of the distal supraspinatus tendon and infraspinatus tendon consisten t with tendinosis. No discrete rotator cuff tear is seen. Rotator cuff muscle signal and bulk is norm al. Increased signal within the intra-articular long head biceps tendon, tendinosis. Cystic change within the glenoid, degenerative change. No discrete labral tear although associated ir regularity likely degenerative. Chondral thinning anterior and superior glenoid. No acute fracture. No acute fracture or osteonecrosis. No definite Hill-Sachs deformity. IMPRESSION: 1. Moderate tendinosis of the supraspinatus and infraspinatus tendons without discrete rotator cuff tear. 2. Right shoulder joint osteoarthritis with glenoid cystic change. 3. Moderate intra-articular long head biceps tendinosis. Electronically signed by: Mike De Leon MD (08/19/2021 1:17 PM) [id number]
== END ==
LOC: KCIC MRI 10:48
PROVIDERS: ATTEND Physician Assistant
DX: S49.91XA Unspecified injury of right shoulder and upper arm, initial encounter (principal); M19.011 Primary osteoarthritis, right shoulder; M75.31 Calcific tendinitis of right shoulder; M25.411 Effusion, right shoulder; M65.811 Other synovitis and tenosynovitis, right shoulder; X58.XXXA Exposure to other specified factors, initial encounter; Y93.89 Activity, other specified; Y92.89 Other specified places as the place of occurrence of the external cause; Y99.8 Other external cause status
CPT/HCPCS: 73221